=== PATIENT | male | born 1955 | race Caucasian/White ===

== ENCOUNTER 2017-09-24 10:53 | Day surgery (SDC) | payer BC ==
[~2017-09-24 10:53] MED LIST: Lactated Ringers 1,000 ML IV SCH
--- NOTE | 2017-09-24 12:15 | PCM.PREANE ---
Preanesthetic Assessment - Anesthesia/Transfusion/Family Hx Anesthesia History: Prior Anesthesia Without Reaction Family History of Anesthesia Reaction: No Transfusion History: No Prior Transfusion(s) - Review of Systems General: No Symptoms Pulmonary: No Symptoms Cardiovascular: No Symptoms Gastrointestinal: Diarrhea Neurological: No Symptoms Other: Reports: None - Physical Assessment NPO Status Date: 09/23/17 NPO Status Time: 22:00 O2 Sat by Pulse Oximetry: 95 Respiratory Rate: 16 Vital Signs: Last Vital Signs Temp 36.8 C 09/24/17 11:31 Pulse 72 09/24/17 11:31 Resp 16 09/24/17 11:31 BP 139/89 09/24/17 11:31 Pulse Ox 95 09/24/17 11:31 Height: 1.7 m Weight: 112.491 kg ASA Class: 2 Mental Status: Alert & Oriented x3 Airway Class: Mallampati = 1 Dentition: Reports: Normal Dentition ROM/Head Extension: Full Lungs: Clear to Auscultation, Normal Respiratory Effort Cardiovascular: Regular Rate, Regular Rhythm - Allergies Allergies/Adverse Reactions: Allergies Allergy/AdvReac Type Severity Reaction Status Date / Time venom-honey bee Allergy Swelling Verified 11/04/15 14:33 [bee venom (honey bee)] - Anesthesia Plan Pre-Op Medication Ordered: None - Acknowledgements Anesthesia Type Planned: MAC Pt an Appropriate Candidate for the Planned Anesthesia: Yes Alternatives and Risks of Anesthesia Discussed w Pt/Guardian: Yes Pt/Guardian Understands and Agrees with Anesthesia Plan: Yes PreAnesthesia Questionnaire HEENT History: Reports: Other (See Below) Other HEENT History: wears glasses Cardiovascular History: Reports: Hypertension Respiratory History: Reports: None Gastrointestinal History: Reports: Chronic Diarrhea, GERD, Irritable Bowel Syndrome Genitourinary History: Reports: Renal Calculus Musculoskeletal History: Reports: Arthritis Other Musculoskeletal History: hands Neurological History: Reports: None Psychiatric History: Reports: None Endocrine/Metabolic History: Reports: Obesity/BMI 30+ Hematologic History: Reports: None Immunologic History: Reports: None Oncologic (Cancer) History: Reports: None Dermatologic History: Reports: None - Past Surgical History Head Surgeries/Procedures: Reports: None HEENT Surgical History: Reports: Tonsillectomy Cardiovascular Surgical History: Reports: None GI Surgical History: Reports: Colonoscopy, Other (See Below) Other GI Surgeries/Procedures: I&D of perirectal abscess, Anal Fistulectomy Male Surgical History: Reports: Other (See Below) Other Male Surgeries/Procedures: right hydrocelectomy Endocrine Surgical History: Reports: None Neurological Surgical History: Reports: None Musculoskeletal Surgical History: Reports: Carpal Tunnel, Shoulder Surgery Other Musculoskeletal Surgeries/Procedures:: bilateral Rotator Cuff Repair ( denies hardware), bilateral CTR - SUBSTANCE USE Smoking Status *Q: Never Smoker Tobacco Use Within Last Twelve Months: No Second Hand Smoke Exposure: No Recreational Drug Use History: No - HOME MEDS Home Medications: Home Meds amLODIPine Besylate [Amlodipine Besylate] 5 mg PO DAILY 02/01/15 [History] Loperamide [Imodium] 2 mg PO ASDIRECTED PRN 11/04/15 [History] Omeprazole 40 mg PO DAILY 11/04/15 [History] Fluticasone Propionate [Flonase Allergy Relief] 2 spray NASBOTH ASDIRECTED PRN 09/19/17 [History] Losartan [Cozaar] 50 mg PO QAM 09/19/17 [History] - CURRENT (IN HOUSE) MEDS Current Meds: Current Medications Lactated Ringer's (Ringers, Lactated) 1,000 mls @ 125 mls/hr IV ASDIRECTED JASVIR
[2017-09-24] MEDS ORDERED: fentaNYL 100 MCG/2 ML SDV ONE (12:57)
[2017-09-24] MEDS ORDERED: Propofol 200 MG/20 ML SDV ONE (12:58)
[2017-09-24] MEDS ORDERED: Midazolam 1 MG/ML 2 ML SDV ONE (12:58)
[2017-09-24] MEDS ORDERED: Ondansetron 4 MG/2 ML SDV ONE (13:00)
[2017-09-24] MEDS ORDERED: Lactated Ringers 1,000 ML IV SCH (13:45)
--- NOTE | 2017-09-24 13:45 | PCM.OPNOTE ---
- General Post-Op/Procedure Note Date of Surgery/Procedure: 09/24/17 Operative Procedure(s): Colonoscopy with cold ascending colon polypectomy Pre Op Diagnosis: Change in bowel habits. Intermittent rectal bleeding. Post-Op Diagnosis: Cecal polyp Anesthesia Technique: MAC (ASA II) Primary Surgeon: Keven Badillo Condition: Good Free Text/Narrative:: [id number] CPT ODE [id number]
--- NOTE | 2017-09-24 13:58 | PCM.POSTAN ---
POST ANESTHESIA ASSESSMENT - MENTAL STATUS Mental Status: Alert, Oriented - RESPIRATORY Respiratory Status: Respiratory Rate WNL, Airway Patent, O2 Saturation Stable - CARDIOVASCULAR CV Status: Pulse Rate WNL, Blood Pressure Stable - GASTROINTESTINAL GI Status: No Symptoms - PAIN Pain Score: 0 - POST OP HYDRATION Hydration Status: Adequate & Stable - OBSERVATIONS Free Text/Narrative:: Pt stable for discharge from [facility]
--- NOTE | 2017-09-24 14:12 | OR ---
SURGEON: Keven Badillo M.D. DATE OF PROCEDURE: 09/24/2017 OPERATION PERFORMED: Colonoscopy with cold ascending colon polypectomy. ANESTHESIA: MAC. ASA CLASSIFICATION: II. PREOPERATIVE DIAGNOSIS: Change in bowel habits with occasional rectal bleeding. POSTOPERATIVE DIAGNOSIS: Ascending colon polyp. DESCRIPTION OF PROCEDURE: The patient was taken to the endoscopy room, positioned on the endoscopy table in the left lateral decubitus position. Time-out was called for appropriate identification of patient and procedure. Monitored anesthesia care was provided. The colonoscope was inserted into the rectum and advanced with moderate difficulty to the cecum where the colonoscope was retroflexed to visualize the ascending colon from below. The colonoscope was then straightened and slowly withdrawn. One small polyp was encountered in the ascending colon and removed with the cold biopsy forceps. The remainder of the ascending colon, hepatic flexure, transverse colon, splenic flexure, descending colon, sigmoid colon, and rectum showed no tumors, polyps, diverticula, or angiodysplastic changes. Once the colonoscope was withdrawn to the rectum, it was retroflexed to visualize the anal orifice from above. Again, no tumors or polyps were seen, and there were no acute hemorrhoidal changes. The colonoscope was then straightened, the rectum aspirated, and the colonoscope removed. The patient tolerated the procedure well and was taken to recovery room in stable condition. RELL RIVERA /[id number]
--- NOTE | 2017-09-24 14:16 | PCM48HPAN ---
Post Anesthesia Note - EVALUATION WITHIN 48HRS OF ANESTHETIC Vital Signs in Normal Range: Yes Patient Participated in Evaluation: Yes Respiratory Function Stable: Yes Airway Patent: Yes Cardiovascular Function Stable: Yes Hydration Status Stable: Yes Pain Control Satisfactory: Yes Nausea and Vomiting Control Satisfactory: Yes Mental Status Recovered: Yes Resp Rate: 16 - COMMENTS/OBSERVATIONS Free Text/Narrative:: No anesthesia complications.
[2017-09-24 14:55] VITALS: BP 126/76
== END 2017-09-24 14:15 | disposition home or self-care (01) ==
LOC: MW.SDS 10:53
PROVIDERS: ATTEND Surgery
DX: D12.2 Benign neoplasm of ascending colon (principal); M67.929 Unspecified disorder of synovium and tendon, unspecified upper arm; I10 Essential (primary) hypertension; M75.42 Impingement syndrome of left shoulder; M17.11 Unilateral primary osteoarthritis, right knee; K21.9 Gastro-esophageal reflux disease without esophagitis; E66.9 Obesity, unspecified; Z68.38 Body mass index [BMI] 38.0-38.9, adult; Z79.899 Other long term (current) drug therapy; Z79.51 Long term (current) use of inhaled steroids; Z98.890 Other specified postprocedural states; Z91.030 Bee allergy status
CPT/HCPCS: 45380; J2250; J2405; J3010; 88305; J2704

== ENCOUNTER 2018-01-21 07:05 | Day surgery (SDC) | payer BC ==
[2018-01-21] MEDS ORDERED: fentaNYL 250 MCG/5 ML SDV ONE (07:14)
[2018-01-21] MEDS ORDERED: Propofol 200 MG/20 ML SDV ONE (07:14)
[2018-01-21] MEDS ORDERED: Lidocaine 2% 5 ML SDV ONE (07:14)
[2018-01-21] MEDS ORDERED: Midazolam 1 MG/ML 2 ML SDV ONE (07:14)
[2018-01-21] MEDS ORDERED: ceFAZolin/Dextrose,Iso-Osmotic 2 GM/50 ML Duplex Bag IV ONE (07:20)
--- NOTE | 2018-01-21 07:26 | PCM.PREANE ---
Preanesthetic Assessment - Anesthesia/Transfusion/Family Hx Anesthesia History: Prior Anesthesia Without Reaction Transfusion History: No Prior Transfusion(s) - Review of Systems General: No Symptoms Pulmonary: No Symptoms Cardiovascular: No Symptoms Gastrointestinal: No Symptoms Neurological: No Symptoms Other: Reports: None - Physical Assessment NPO Status Date: 01/20/18 NPO Status Time: 22:00 Height: 5 ft 7 in Weight: 104.326 kg ASA Class: 2 Mental Status: Alert & Oriented x3 Airway Class: Mallampati = 2 Dentition: Reports: Normal Dentition Thyro-Mental Finger Breadths: 3 Mouth Opening Finger Breadths: 3 ROM/Head Extension: Full Lungs: Clear to Auscultation, Normal Respiratory Effort Cardiovascular: Regular Rate, Regular Rhythm - Allergies Allergies/Adverse Reactions: Allergies Allergy/AdvReac Type Severity Reaction Status Date / Time venom-honey bee Allergy Swelling Verified 11/04/15 14:33 [bee venom (honey bee)] - Acknowledgements Anesthesia Type Planned: General Anesthesia (LMA) Pt an Appropriate Candidate for the Planned Anesthesia: Yes Alternatives and Risks of Anesthesia Discussed w Pt/Guardian: Yes Pt/Guardian Understands and Agrees with Anesthesia Plan: Yes PreAnesthesia Questionnaire HEENT History: Reports: Allergic Rhinitis, Other (See Below) Other HEENT History: wears glasses Cardiovascular History: Reports: Hypertension Respiratory History: Reports: None Gastrointestinal History: Reports: GERD, Irritable Bowel Syndrome Genitourinary History: Reports: Renal Calculus Musculoskeletal History: Reports: Arthritis Other Musculoskeletal History: hands Neurological History: Reports: None Psychiatric History: Reports: None Endocrine/Metabolic History: Reports: Obesity/BMI 30+ Hematologic History: Reports: None Immunologic History: Reports: None Oncologic (Cancer) History: Reports: None Dermatologic History: Reports: None - Infectious Disease History Infectious Disease History: Reports: None - Past Surgical History HEENT Surgical History: Reports: Tonsillectomy GI Surgical History: Reports: Colonoscopy, Other (See Below) Other GI Surgeries/Procedures: Anal Fistulectomy, I&D of Perirectal Abscess Musculoskeletal Surgical History: Reports: Carpal Tunnel, Shoulder Surgery Other Musculoskeletal Surgeries/Procedures:: bilateral RTCR, bilateral CTR - SUBSTANCE USE Smoking Status *Q: Former Smoker Tobacco Use Within Last Twelve Months: No Recreational Drug Use History: No - HOME MEDS Home Medications: Home Meds amLODIPine Besylate [Amlodipine Besylate] 5 mg PO DAILY 02/01/15 [History] Loperamide [Imodium] 2 mg PO ASDIRECTED PRN 11/04/15 [History] Omeprazole 40 mg PO DAILY 11/04/15 [History] Fluticasone Propionate [Flonase Allergy Relief] 2 spray NASBOTH ASDIRECTED PRN 09/19/17 [History] Losartan [Cozaar] 50 mg PO QAM 09/19/17 [History] - CURRENT (IN HOUSE) MEDS Current Meds: Current Medications Hydrocodone Bitart/Acetaminophen (Lyons 325-5 Mg) 1 - 2 tab PO Q4H PRN PRN Reason: Pain Cefazolin Sodium/Dextrose 2 gm (/ Premix) 50 mls @ 100 mls/hr IV ONCALL JASVIR Lactated Ringer's (Ringers, Lactated) 1,000 mls @ 100 mls/hr IV ASDIRECTED JASVIR Discontinued Medications Cefazolin Sodium/Dextrose (Ancef) Confirm Administered Dose 2 gm IV .STK-MED ONE Stop: 01/21/18 07:21 Fentanyl (Sublimaze) Confirm Administered Dose 250 mcg .ROUTE .STK-MED ONE Stop: 01/21/18 07:15 Lidocaine (Xylocaine-Mpf 2%) Confirm Administered Dose 10 ml .ROUTE .STK-MED ONE Stop: 01/21/18 07:15 Midazolam HCl (Versed 1 Mg/Ml) Confirm Administered Dose 2 mg .ROUTE .STK-MED ONE Stop: 01/21/18 07:15 Propofol (Diprivan 20 Ml) Confirm Administered Dose 400 mg .ROUTE .STK-MED ONE Stop: 01/21/18 07:15
[2018-01-21] MEDS ORDERED: Lidocaine 1% 20 ML MDV ONE (07:39)
[2018-01-21] MEDS ORDERED: ceFAZolin 2 GM in Premix Bag 1 BAG IV SCH (08:00)
[2018-01-21] MEDS ORDERED: Acetaminophen/HYDROcodone 325-5 MG Tab PO PRN (08:00)
[2018-01-21] MEDS ORDERED: fentaNYL 100 MCG/2 ML SDV IVPUSH PRN (08:32)
--- NOTE | 2018-01-21 08:52 | PCM.OPNOTE ---
- General Post-Op/Procedure Note Date of Surgery/Procedure: 01/21/18 Operative Procedure(s): R knee arthroscopy with PMM/PLM Post-Op Diagnosis: DJD R knee. R knee med/lat meniscus tear Anesthesia Technique: General LMA Primary Surgeon: Ludivina Garza Art Teacher: Chelsey Mccoy in mLs: 5 Condition: Good Free Text/Narrative:: tt=21 min #[id number]
[2018-01-21] MEDS ORDERED: ePHEDrine 50 MG/ML SDV ONE (09:00)
--- NOTE | 2018-01-21 09:37 | PCM.POSTAN ---
POST ANESTHESIA ASSESSMENT - MENTAL STATUS Mental Status: Alert, Oriented - RESPIRATORY Respiratory Status: Respiratory Rate WNL, Airway Patent, O2 Saturation Stable - CARDIOVASCULAR CV Status: Pulse Rate WNL, Blood Pressure Stable - GASTROINTESTINAL GI Status: No Symptoms - POST OP HYDRATION Hydration Status: Adequate & Stable
--- NOTE | 2018-01-21 10:06 | OR ---
SURGEON: Ludivina Garza MD DATE OF PROCEDURE: 01/21/2018 PREOPERATIVE DIAGNOSIS: Right knee medial meniscus tear. POSTOPERATIVE DIAGNOSES: 1. Right knee medial meniscus tear. 2. Right knee lateral meniscus tear. 3. Degenerative joint disease, right knee. PROCEDURE PERFORMED: Right knee arthroscopy with partial medial and lateral meniscectomy. HUMAN RESOURCES ASSOCIATE: Chelsey Mccoy PA-C ANESTHESIA: General. ESTIMATED BLOOD LOSS: 5 mL. TOURNIQUET TIME: 21 minutes. COMPLICATIONS: None. DVT PROPHYLAXIS: Not indicated. IMPLANTS USED: None. BRIEF HISTORY: Braulio is a 62-year-old male who has had complaint of progressive right knee pain. He had failed conservative treatment. Due to his lack of response to conservative treatment, I did recommend surgical intervention. The risks and goals of procedure were discussed with the patient and were documented preoperatively. He agreed to proceed. DESCRIPTION OF PROCEDURE: The patient was properly identified and brought to the operating room. He was transferred from the OR cart and placed on the operating table in supine position. General anesthesia was administered. After adequate anesthesia was obtained, a well-padded tourniquet was applied to the right lower extremity. The right lower extremity was then prepped in standard fashion using ChloraPrep solution. It was then sterilely draped. A time-out was performed to ensure correct site and procedure. Preoperative antibiotics were given. The surgical site had been marked preoperatively. An Esmarch was used to exsanguinate the right lower extremity, and the tourniquet was inflated to 250 mmHg. A lateral portal arthrotomy was established. Blunt trocar and cannula were introduced into the suprapatellar pouch. Camera, inflow, and outflow were assembled. No significant synovitis was noted. The patellofemoral joint was visualized. The patella tracked in a slightly lateral position. Diffuse grade 2 chondromalacia was noted along the undersurface of the patella. The trochlea showed extensive degenerative changes including a portion of the lateral femoral condyle, which showed grade 3 to 4 chondromalacia. I then extended down the medial gutter. The start of an osteophyte was noted along the medial femoral condyle. I then entered the medial compartment. A medial portal arthrotomy was established. A blunt probe was inserted. Degenerative tearing along the central portion of the meniscus was noted. Using a combination of biters and shaver, this was resected back to a stable remnant. The joint surfaces were then inspected. He had a loose flap of cartilage along the medial femoral condyle. This was resected with the shaver. This was full thickness and did extend down to the bone. An area of approximately 5 mm x 15 mm of grade 4 chondromalacia was noted along the weightbearing surface of the medial femoral condyle. The surrounding cartilage showed diffuse grade 3 degenerative findings. The medial tibial plateau also showed grade 3 chondromalacia. I then entered the notch. A portion of the fat pad was resected for visualization. Both the ACL and PCL were visualized and probed and found to be intact. I then entered the lateral compartment. Again, degenerative fraying was noted along the central portion of the meniscus. This was resected using a combination of biters and shaver. The meniscus was then probed, and the remainder of the meniscus was found to be stable. Diffuse grade 2 chondromalacia was noted along the lateral tibial plateau. Grade 2 chondromalacia was noted along the lateral femoral condyle. The lateral gutter was inspected. The lateral femoral condyle showed the start of an osteophyte. The instruments were then removed from the knee. The portal sites were closed with 3-0 nylon. 1% lidocaine was injected along the portal tracts. Xeroform gauze was placed over the wound, and a bulky dressing was applied. The tourniquet was then deflated. He was awakened from his anesthetic and transferred back to the operating room cart. He was brought to recovery room in stable condition. All needle and sponge counts were correct. HIEN / NICOLE /[id number]
--- NOTE | 2018-01-21 10:19 | PCM48HPAN ---
Post Anesthesia Note - EVALUATION WITHIN 48HRS OF ANESTHETIC Vital Signs in Normal Range: Yes Patient Participated in Evaluation: Yes Respiratory Function Stable: Yes Airway Patent: Yes Cardiovascular Function Stable: Yes Hydration Status Stable: Yes Pain Control Satisfactory: Yes Nausea and Vomiting Control Satisfactory: Yes Mental Status Recovered: Yes Resp Rate: 12
[2018-01-21 11:19] VITALS: BP 154/99
== END 2018-01-21 10:40 | disposition home or self-care (01) ==
LOC: MW.SDS 07:05
PROVIDERS: ATTEND Orthopaedic Surgery
DX: M23.203 Derangement of unspecified medial meniscus due to old tear or injury, right knee (principal); M23.200 Derangement of unspecified lateral meniscus due to old tear or injury, right knee; M17.11 Unilateral primary osteoarthritis, right knee; M65.88 Other synovitis and tenosynovitis, other site; M94.261 Chondromalacia, right knee; M25.761 Osteophyte, right knee; I10 Essential (primary) hypertension; E66.9 Obesity, unspecified; Z68.36 Body mass index [BMI] 36.0-36.9, adult; K21.9 Gastro-esophageal reflux disease without esophagitis; Z87.891 Personal history of nicotine dependence; Z79.899 Other long term (current) drug therapy; Z91.030 Bee allergy status
CPT/HCPCS: 29880; 93005; J0690; J2250; J3010; J7120; 01400; J2704

== ENCOUNTER 2018-01-26 13:12 | Emergency (ER) | payer BC ==
[2018-01-26 13:42] VITALS: BP 141/82
[2018-01-26] MEDS ORDERED: LORazepam 2 MG/ML SDV IVPUSH ONE (13:44)
[2018-01-26] MEDS ORDERED: Magnesium Sulfate/Water 2 GM in Premix Bag 1 BAG IV ONE (13:45)
--- NOTE | 2018-01-26 13:53 | EDM.PDOC ---
ED HPI GENERAL MEDICAL PROBLEM - General Chief Complaint: Bite:Animal, Insect Stated Complaint: SPIDER BITE ON RT LEG Time Seen by Provider: 01/26/18 14:12 Source of Information: Reports: Patient History Limitations: Reports: No Limitations - History of Present Illness INITIAL COMMENTS - FREE TEXT/NARRATIVE: HISTORY AND PHYSICAL: History of present illness: [Braulio is a 62-year-old male here for bug bite. Patient states he had surgery to his right knee 6 days ago, did no notice any bite then. He noticed the redness 4 days ago, states it was draining some clear/yellow fluid first couple of days. It is tender to touch. He denies any fevers or chills. ] Review of systems: As per history of present illness and below otherwise all systems reviewed and negative. Past medical history: As per history of present illness and as reviewed below otherwise noncontributory. Surgical history: As per history of present illness and as reviewed below otherwise noncontributory. Social history: No reported history of drug or alcohol abuse. Family history: As per history of present illness and as reviewed below otherwise noncontributory. Physical exam: General: patient sitting comfortably in no acute distress HEENT: Atraumatic, normocephalic, pupils reactive, negative for conjunctival pallor or scleral icterus Lungs: Clear to auscultation, breath sounds equal bilaterally, chest nontender. Heart: S1S2, regular, negative for clicks, rubs, or JVD. Abdomen: Soft, nondistended, nontender. Negative for masses or hepatosplenomegaly. Negative for costovertebral tenderness. Skin: there is a small scab with 2.5cm of surrounding erythema to the right anterior leg. 2+ pitting edema distally. Extremities: Atraumatic, negative for cords or calf pain. Neurovascular unremarkable. Neuro: Awake, alert, oriented. Cranial nerves II through XII unremarkable. Cerebellum unremarkable. Motor and sensory unremarkable throughout. Exam nonfocal. Notes: Diagnostics: [] Therapeutics: [Keflex 500mg BID] Impression: [Cellulitis] Plan: [#1 Take antibiotic as instructed #2 Follow up with primary care provider #3 Return to ED as needed as discussed] Definitive disposition and diagnosis as appropriate pending reevaluation and review of above. - Related Data Allergies Allergy/AdvReac Type Severity Reaction Status Date / Time venom-honey bee Allergy Swelling Verified 01/26/18 13:42 [bee venom (honey bee)] Home Meds: Home Meds amLODIPine Besylate [Amlodipine Besylate] 5 mg PO DAILY 02/01/15 [History] Omeprazole 40 mg PO DAILY 11/04/15 [History] Fluticasone Propionate [Flonase Allergy Relief] 2 spray NASBOTH ASDIRECTED PRN 09/19/17 [History] Losartan [Cozaar] 50 mg PO QAM 09/19/17 [History] Cephalexin [Keflex] 500 mg PO BID 10 Days #20 cap 01/26/18 [Rx] Past Medical History HEENT History: Reports: Allergic Rhinitis, Other (See Below) Other HEENT History: wears glasses Cardiovascular History: Reports: Hypertension Respiratory History: Reports: None Gastrointestinal History: Reports: GERD, Irritable Bowel Syndrome Genitourinary History: Reports: Renal Calculus Musculoskeletal History: Reports: Arthritis Other Musculoskeletal History: hands Neurological History: Reports: None Psychiatric History: Reports: None Endocrine/Metabolic History: Reports: Obesity/BMI 30+ Hematologic History: Reports: None Immunologic History: Reports: None Oncologic (Cancer) History: Reports: None Dermatologic History: Reports: None - Infectious Disease History Infectious Disease History: Reports: None - Past Surgical History Head Surgeries/Procedures: Reports: None HEENT Surgical History: Reports: Tonsillectomy Cardiovascular Surgical History: Reports: None GI Surgical History: Reports: Colonoscopy, Other (See Below) Other GI Surgeries/Procedures: Anal Fistulectomy, I&D of Perirectal Abscess Male Surgical History: Reports: Other (See Below) Other Male Surgeries/Procedures: right hydrocelectomy Endocrine Surgical History: Reports: None Neurological Surgical History: Reports: None Musculoskeletal Surgical History: Reports: Carpal Tunnel, Shoulder Surgery Other Musculoskeletal Surgeries/Procedures:: bilateral RTCR, bilateral CTR Social & Family History - Family History Family Medical History: Noncontributory ED ROS GENERAL - Review of Systems Review Of Systems: ROS reveals no pertinent complaints other than HPI. ED EXAM, ANIMAL BITE - Physical Exam Exam: See Below Course - Vital Signs Last Recorded V/S: Last Vital Signs Temp 36.7 C 01/26/18 13:38 Pulse 79 01/26/18 13:38 Resp 20 01/26/18 13:38 BP 141/82 H 01/26/18 13:38 Pulse Ox 95 01/26/18 13:38 - Orders/Labs/Meds Orders: Active Orders 24 hr Category Date Time Status Magnesium Sulfate/Water [Magnesium Sulfate 2 GM in Med 01/26/18 13:45 Ordered Water 50 ML] 2 gm Premix Bag 1 bag IV ONETIME Meds: Medications Discontinued Medications Generic Name Dose Route Start Last Admin Trade Name Schuyler PRN Reason Stop Dose Admin Lorazepam 1 mg 01/26/18 13:44 Ativan IVPUSH 01/26/18 13:45 ONETIME ONE Departure - Departure Time of Disposition: 13:48 Disposition: Home, Self-Care 01 Condition: Good Clinical Impression: Cellulitis - Discharge Information Referrals: PCP,None [Primary Care Provider] - Additional Instructions: The following information is given to patients seen in the emergency department who are being discharged to home. This information is to outline your options for follow-up care. We provide all patients seen in our emergency department with a follow-up referral. The need for follow-up, as well as the timing and circumstances, are variable depending upon the specifics of your emergency department visit. If you don't have a primary care physician on staff, we will provide you with a referral. We always advise you to contact your personal physician following an emergency department visit to inform them of the circumstance of the visit and for follow-up with them and/or the need for any referrals to a consulting specialist. The emergency department will also refer you to a specialist when appropriate. This referral assures that you have the opportunity for follow-up care with a specialist. All of these measure are taken in an effort to provide you with optimal care, which includes your follow-up. Under all circumstances we always encourage you to contact your private physician who remains a resource for coordinating your care. When calling for follow-up care, please make the office aware that this follow-up is from your recent emergency room visit. If for any reason you are refused follow-up, please contact the [facility] Department at and asked to speak to the emergency department charge nurse. [facility] [address] [place] [id number] [address] [place] [address] #1 Take antibiotic as instructed #2 Follow up with primary care provider #3 Return to ED as needed as discussed - My Orders Last 24 Hours: My Active Orders 01/26/18 13:45 Magnesium Sulfate/Water [Magnesium Sulfate 2 GM in Water 50 ML] 2 gm Premix Bag 1 bag IV ONETIME - Assessment/Plan Last 24 Hours: My Active Orders 01/26/18 13:45 Magnesium Sulfate/Water [Magnesium Sulfate 2 GM in Water 50 ML] 2 gm Premix Bag 1 bag IV ONETIME
== END 2018-01-26 14:16 | disposition home or self-care (01) ==
LOC: MW.ED 13:12
DX: L03.115 Cellulitis of right lower limb (principal); I10 Essential (primary) hypertension; K21.9 Gastro-esophageal reflux disease without esophagitis; Z91.030 Bee allergy status; Z79.899 Other long term (current) drug therapy
CPT/HCPCS: 96365; 96372; 99282-25

== ENCOUNTER 2019-04-26 16:08 | Emergency (ER) | payer BC ==
[2019-04-26] MEDS ORDERED: Sodium Chloride 0.9% 1,000 ML IV ONE (16:31)
[2019-04-26] MEDS ORDERED: Sodium Chloride 0.9% 2.5 ML Syringe FLUSH PRN (16:31)
[2019-04-26] MEDS ORDERED: Sodium Chloride 0.9% 10 ML Syringe FLUSH PRN (16:31)
[2019-04-26] MEDS ORDERED: Acetaminophen 500 MG Tab PO ONE (16:31)
--- NOTE | 2019-04-26 16:36 | EDM.PDOC ---
ED HPI GENERAL MEDICAL PROBLEM - General Chief Complaint: Fever Stated Complaint: FLU Time Seen by Provider: 04/26/19 16:18 - History of Present Illness INITIAL COMMENTS - FREE TEXT/NARRATIVE: HISTORY AND PHYSICAL: History of present illness: The patient is a 64-year-old male with a history of hypertension who presents with 2 days of feeling hot and then feeling cold taking ibuprofen for the fever is mild body aches but not profound or diffuse and concerned about these fevers. He has no headache runny nose sore throat ear pain chest pain or shortness of breath and he has no abdominal pain nausea vomiting or diarrhea. The patient says that yesterday he had a slight diffuse abdominal pain but that is gone away and has not persisted and he has been eating and drinking normally. He's had no urinary complaints such as hematuria dysuria frequency and no flank pain. He has no neck pain and has no rashes. He has not gotten his flu shot yet this year and had been getting it yesterday but because of his illness he did not go. Review of systems: As per history of present illness and below otherwise all systems reviewed and negative. Past medical history: As per history of present illness and as reviewed below otherwise noncontributory. Surgical history: As per history of present illness and as reviewed below otherwise noncontributory. Social history: No reported history of drug or alcohol abuse. Family history: As per history of present illness and as reviewed below otherwise noncontributory. Physical exam: General: Well-developed well-nourished overweight man who is nontoxic and speaking clearly in the ED without breathlessness. Vital signs are noted by me HEENT: Atraumatic, normocephalic, pupils reactive, negative for conjunctival pallor or scleral icterus, mucous membranes moist, throat clear, neck supple, nontender, trachea midline. Some anterior cervical adenopathy but no posterior adenopathy and no nuchal rigidity. The tongue is somewhat tacky but there is no oral pharyngeal changes or erythema and no sinus tenderness. Lungs: Clear to auscultation, breath sounds equal bilaterally, chest nontender. Wheezing stridor or work of breathing Heart: S1S2, regular rhythm and regular rate on my evaluation but no overt murmurs Abdomen: Soft, nondistended, nontender. Negative for masses or hepatosplenomegaly. Negative for costovertebral tenderness. The patient has a soft umbilical hernia which she says has not changed in size nor have any surrounding erythema or tenderness. Pelvis: Deferred Genitourinary: Deferred. Rectal: Deferred. Extremities: Atraumatic, negative for cords or calf pain. Neurovascular unremarkable. Neuro: Awake, alert, oriented. Cranial nerves II through XII unremarkable. Cerebellum unremarkable. Motor and sensory unremarkable throughout. Exam nonfocal. Diagnostics: CBC CMP UA with reflex Monospot chest x-ray lactic acid blood cultures 2 influenza rapid strep Therapeutics: IV fluids Tylenol After the fluids and Tylenol patient is feeling significantly improved and tells nursing this is the best he's felt in the last 2 days. He is currently afebrile at 99 and I'm currently just awaiting the rest of his urine testing and will go over all labs with him. At this point I do not have a source for his fever and the only abnormality is that within normal WBC count he does have a slight left shift with have any percent neutrophils and 6 bands. I have sent blood cultures and urine culture will be sent if the UA micro-indicates. I discussed with them the need for symptomatic care and management as this is likely viral but that we would call him if the blood cultures revealed any significant issues that mandated antibiotic therapy. I've advised him to follow- up with the clinic take appropriate doses of Tylenol and ibuprofen and push hydration. I've also advised on reasons to return especially if new symptoms erupt or his clinical picture changes. Impression: Fever, viral illness Definitive disposition and diagnosis as appropriate pending reevaluation and review of above. - Related Data Allergies Allergy/AdvReac Type Severity Reaction Status Date / Time venom-honey bee Allergy Swelling Verified 04/26/19 16:27 [bee venom (honey bee)] Home Meds: Home Meds amLODIPine Besylate [Amlodipine Besylate] 5 mg PO DAILY 02/01/15 [History] Omeprazole 40 mg PO DAILY 11/04/15 [History] Losartan [Cozaar] 50 mg PO QAM 09/19/17 [History] Past Medical History HEENT History: Reports: Allergic Rhinitis, Other (See Below) Other HEENT History: wears glasses Cardiovascular History: Reports: Hypertension Respiratory History: Reports: None Gastrointestinal History: Reports: GERD, Irritable Bowel Syndrome Genitourinary History: Reports: Renal Calculus Musculoskeletal History: Reports: Arthritis Other Musculoskeletal History: hands Neurological History: Reports: None Psychiatric History: Reports: None Endocrine/Metabolic History: Reports: Obesity/BMI 30+ Hematologic History: Reports: None Immunologic History: Reports: None Oncologic (Cancer) History: Reports: None Dermatologic History: Reports: None - Infectious Disease History Infectious Disease History: Reports: None - Past Surgical History Head Surgeries/Procedures: Reports: None HEENT Surgical History: Reports: Tonsillectomy Cardiovascular Surgical History: Reports: None GI Surgical History: Reports: Colonoscopy, Other (See Below) Other GI Surgeries/Procedures: Anal Fistulectomy, I&D of Perirectal Abscess Male Surgical History: Reports: Other (See Below) Other Male Surgeries/Procedures: right hydrocelectomy Endocrine Surgical History: Reports: None Neurological Surgical History: Reports: None Musculoskeletal Surgical History: Reports: Carpal Tunnel, Shoulder Surgery Other Musculoskeletal Surgeries/Procedures:: bilateral RTCR, bilateral CTR Social & Family History - Family History Family Medical History: Noncontributory - Tobacco Use Smoking Status *Q: Never Smoker - Caffeine Use Caffeine Use: Reports: Coffee - Recreational Drug Use Recreational Drug Use: No ED ROS GENERAL - Review of Systems Review Of Systems: ROS reveals no pertinent complaints other than HPI. ED EXAM, GENERAL - Physical Exam Exam: See Below (See dictation) Course - Vital Signs Last Recorded V/S: Last Vital Signs Temp 37.4 C 04/26/19 18:25 Pulse 89 04/26/19 16:23 Resp 16 04/26/19 16:23 BP 139/85 04/26/19 16:23 Pulse Ox 94 L 04/26/19 16:23 - Orders/Labs/Meds Orders: Active Orders 24 hr Category Date Time Status CULTURE BLOOD [BC] Stat Lab 04/26/19 17:00 Received CULTURE BLOOD [BC] Stat Lab 04/26/19 17:14 Received CULTURE STREP A CONFIRMATION [RM] Stat Lab 04/26/19 16:35 Results STREP SCRN A RAPID W CULT CONF [RM] Stat Lab 04/26/19 16:35 Results Sodium Chloride 0.9% [Saline Flush] Med 04/26/19 16:31 Active 10 ml FLUSH ASDIRECTED PRN Sodium Chloride 0.9% [Saline Flush] Med 04/26/19 16:31 Active 2.5 ml FLUSH ASDIRECTED PRN Blood Culture x2 Reflex Set [OM.PC] Stat Oth 04/26/19 16:32 Ordered Saline Lock Insert [OM.PC] Stat Oth 04/26/19 16:31 Ordered Medication Orders Sodium Chloride (Saline Flush) 10 ml FLUSH ASDIRECTED PRN PRN Reason: Keep Vein Open Sodium Chloride (Saline Flush) 2.5 ml FLUSH ASDIRECTED PRN PRN Reason: Keep Vein Open Labs: Laboratory Tests 04/26/19 04/26/19 04/26/19 Range/Units 16:35 16:35 16:35 WBC 9.82 (4.0-11.0) K/uL RBC 4.41 L (4.50-5.90) M/uL Hgb 13.8 (13.0-17.0) g/dL Hct 41.6 (38.0-50.0) % MCV 94.3 (80.0-98.0) fL MCH 31.3 (27.0-32.0) pg MCHC 33.2 (31.0-37.0) g/dL RDW Std Deviation 46.8 (28.0-62.0) fl RDW Coeff of Lida 14 (11.0-15.0) % Plt Count 81 L (150-400) K/uL MPV 9.50 (7.40-12.00) fL Add Manual Diff YES Neutrophils % (Manual) 70 (48.0-80.0) % Band Neutrophils % 6 % Lymphocytes % (Manual) 19 (16.0-40.0) % Immat Monocytes % (Man) Monocytes % (Manual) 5 (0.0-15.0) % Nucleated RBC % 0.0 /100WBC Absolute Seg Neuts 6.9 H (1.4-5.7) Band Neutrophils # 0.6 Lymphocytes # (Manual) 1.9 (0.6-2.4) Monocytes # (Manual) 0.5 (0.0-0.8) Nucleated RBCs # 0 K/uL Lactate 1.1 (0.20-2.00) mmol/L Sodium 139 (136-148) mmol/L Potassium 4.0 (3.5-5.1) mmol/L Chloride 105 (98-107) mmol/L Carbon Dioxide 25.2 (21.0-32.0) mmol/L BUN 11 (7.0-18.0) mg/dL Creatinine 1.1 (0.8-1.3) mg/dL Est Cr Clr Drug Dosing 63.43 mL/min Estimated GFR (MDRD) > 60.0 ml/min Glucose 129 H (74-106) mg/dL Calcium 8.8 (8.5-10.1) mg/dL Total Bilirubin 0.8 (0.2-1.0) mg/dL AST 20 (15-37) IU/L ALT 47 (14-63) IU/L Alkaline Phosphatase 68 (46-116) U/L Total Protein 7.3 (6.4-8.2) g/dL Albumin 3.2 L (3.4-5.0) g/dL Globulin 4.1 H (2.6-4.0) g/dL Albumin/Globulin Ratio 0.8 L (0.9-1.6) Urine Color Urine Appearance Urine pH (5.0-8.0) Ur Specific Sweet (1.001-1.035) Urine Protein (NEGATIVE) mg/dL Urine Glucose (UA) (NEGATIVE) mg/dL Urine Ketones (NEGATIVE) mg/dL Urine Occult Blood (NEGATIVE) Urine Nitrite (NEGATIVE) Urine Bilirubin (NEGATIVE) Urine Urobilinogen (<2.0) EU/dL Ur Leukocyte Esterase (NEGATIVE) Urine RBC (0-2/HPF) Urine WBC (0-5/HPF) Ur Epithelial Cells (NONE-FEW) Urine Bacteria (NEGATIVE) Monoscreen (NEG) 04/26/19 04/26/19 Range/Units 16:35 18:00 WBC (4.0-11.0) K/uL RBC (4.50-5.90) M/uL Hgb (13.0-17.0) g/dL Hct (38.0-50.0) % MCV (80.0-98.0) fL MCH (27.0-32.0) pg MCHC (31.0-37.0) g/dL RDW Std Deviation (28.0-62.0) fl RDW Coeff of Lida (11.0-15.0) % Plt Count (150-400) K/uL MPV (7.40-12.00) fL Add Manual Diff Neutrophils % (Manual) (48.0-80.0) % Band Neutrophils % % Lymphocytes % (Manual) (16.0-40.0) % Immat Monocytes % (Man) Monocytes % (Manual) (0.0-15.0) % Nucleated RBC % /100WBC Absolute Seg Neuts (1.4-5.7) Band Neutrophils # Lymphocytes # (Manual) (0.6-2.4) Monocytes # (Manual) (0.0-0.8) Nucleated RBCs # K/uL Lactate (0.20-2.00) mmol/L Sodium (136-148) mmol/L Potassium (3.5-5.1) mmol/L Chloride (98-107) mmol/L Carbon Dioxide (21.0-32.0) mmol/L BUN (7.0-18.0) mg/dL Creatinine (0.8-1.3) mg/dL Est Cr Clr Drug Dosing mL/min Estimated GFR (MDRD) ml/min Glucose (74-106) mg/dL Calcium (8.5-10.1) mg/dL Total Bilirubin (0.2-1.0) mg/dL AST (15-37) IU/L ALT (14-63) IU/L Alkaline Phosphatase (46-116) U/L Total Protein (6.4-8.2) g/dL Albumin (3.4-5.0) g/dL Globulin (2.6-4.0) g/dL Albumin/Globulin Ratio (0.9-1.6) Urine Color YELLOW Urine Appearance CLEAR Urine pH 6.0 (5.0-8.0) Ur Specific Sweet 1.025 (1.001-1.035) Urine Protein TRACE H (NEGATIVE) mg/dL Urine Glucose (UA) NEGATIVE (NEGATIVE) mg/dL Urine Ketones TRACE H (NEGATIVE) mg/dL Urine Occult Blood MODERATE H (NEGATIVE) Urine Nitrite NEGATIVE (NEGATIVE) Urine Bilirubin NEGATIVE (NEGATIVE) Urine Urobilinogen 0.2 (<2.0) EU/dL Ur Leukocyte Esterase NEGATIVE (NEGATIVE) Urine RBC 1-4 (0-2/HPF) Urine WBC 0-1 (0-5/HPF) Ur Epithelial Cells RARE (NONE-FEW) Urine Bacteria RARE (NEGATIVE) Monoscreen NEGATIVE (NEG) Meds: Medications Generic Name Dose Route Start Last Admin Trade Name Freq PRN Reason Stop Dose Admin Sodium Chloride 10 ml 04/26/19 16:31 Saline Flush FLUSH ASDIRECTED PRN Keep Vein Open Sodium Chloride 2.5 ml 04/26/19 16:31 Saline Flush FLUSH ASDIRECTED PRN Keep Vein Open Discontinued Medications Generic Name Dose Route Start Last Admin Trade Name Schuyler PRN Reason Stop Dose Admin Acetaminophen 1,000 mg 04/26/19 16:31 04/26/19 16:44 Tylenol Extra Strength PO 04/26/19 16:32 1,000 mg ONETIME ONE Administration Sodium Chloride 1,000 mls @ 999 mls/hr 04/26/19 16:31 04/26/19 16:41 Normal Saline IV 04/26/19 17:31 999 mls/hr STAT ONE Administration Departure - Departure Time of Disposition: 18:37 Disposition: Home, Self-Care 01 Condition: Good Clinical Impression: Fever Qualifiers: Fever type: unspecified Qualified Code(s): R50.9 - Fever, unspecified - Discharge Information Instructions: Fever, Adult, Rehydration, Adult Referrals: PCP,Unknown [Primary Care Provider] - Forms: ED Department Discharge Additional Instructions: The following information is given to patients seen in the emergency department who are being discharged to home. This information is to outline your options for follow-up care. We provide all patients seen in our emergency department with a follow-up referral. The need for follow-up, as well as the timing and circumstances, are variable depending upon the specifics of your emergency department visit. If you don't have a primary care physician on staff, we will provide you with a referral. We always advise you to contact your personal physician following an emergency department visit to inform them of the circumstance of the visit and for follow-up with them and/or the need for any referrals to a consulting specialist. The emergency department will also refer you to a specialist when appropriate. This referral assures that you have the opportunity for followup care with a specialist. All of these measure are taken in an effort to provide you with optimal care, which includes your followup. Under all circumstances we always encourage you to contact your private physician who remains a resource for coordinating your care. When calling for followup care, please make the office aware that this follow-up is from your recent emergency room visit. If for any reason you are refused follow-up, please contact the [facility] emergency department at and ask to speak to the emergency department charge nurse. MARY [facility] Primary care- Internal Medicine and Family [facility] [address] [place] [address] [facility] [address] [place] [address] Please call and connect with your provider or one of hours for reevaluation and further care next week and continue to monitor your temperature taking Tylenol and Motrin in appropriate doses as needed for temperatures of 100.4 or higher. Your dose for Tylenol is 1000 mg or 2 extra strength every 6 hours and your dose of ibuprofen/Motrin is 800 mg every 8 hours. You need to push her hydration as this will help you with your recovery process. Continue to monitor any new symptoms or changes in his status and return to ER as needed and as discussed. Cultures of your blood were sent on your ER visit today and if there any need for antibiotic therapy you will be contacted - My Orders Last 24 Hours: My Active Orders 04/26/19 16:31 Sodium Chloride 0.9% [Saline Flush] 10 ml FLUSH ASDIRECTED PRN Sodium Chloride 0.9% [Saline Flush] 2.5 ml FLUSH ASDIRECTED PRN Saline Lock Insert [OM.PC] Stat 04/26/19 16:32 Blood Culture x2 Reflex Set [OM.PC] Stat 04/26/19 16:35 CULTURE STREP A CONFIRMATION [RM] Stat STREP SCRN A RAPID W CULT CONF [RM] Stat 04/26/19 17:00 CULTURE BLOOD [BC] Stat 04/26/19 17:14 CULTURE BLOOD [BC] Stat - Assessment/Plan Last 24 Hours: My Active Orders 04/26/19 16:31 Sodium Chloride 0.9% [Saline Flush] 10 ml FLUSH ASDIRECTED PRN Sodium Chloride 0.9% [Saline Flush] 2.5 ml FLUSH ASDIRECTED PRN Saline Lock Insert [OM.PC] Stat 04/26/19 16:32 Blood Culture x2 Reflex Set [OM.PC] Stat 04/26/19 16:35 CULTURE STREP A CONFIRMATION [RM] Stat STREP SCRN A RAPID W CULT CONF [RM] Stat 04/26/19 17:00 CULTURE BLOOD [BC] Stat 04/26/19 17:14 CULTURE BLOOD [BC] Stat
[2019-04-26 17:14] LABS: BLOOD UREA NITROGEN,BUN 11 mg/dL (7.0-18.0); CARBON DIOXIDE,CO2 25.2 mmol/L (21.0-32.0); CHLORIDE,CL 105 mmol/L (98-107); GLUCOSE RANDOM 129 mg/dL (74-106); SODIUM,NA 139 mmol/L (136-148)
--- NOTE | 2019-04-26 17:56 | CR ---
INDICATION: Chest pain, shortness of breath, cough TECHNIQUE: Chest 2 views. COMPARISON: None available FINDINGS: The heart is normal in size. The pulmonary vasculature is within normal limits. The lungs are clear without focal consolidation, pleural effusion or pneumothorax. There is mild elevation of the right hemidiaphragm. IMPRESSION: Mild elevation of the right hemidiaphragm, otherwise negative for acute cardiopulmonary process. Dictated by Paulette Weiner MD @ 04/26/2019 5:54:08 PM Dictated by: Paulette Weiner MD @ 04/26/2019 17:54:21 (Electronically Signed)
[2019-04-26 18:49] VITALS: BP 140/85; PULSE 70
== END 2019-04-26 18:43 | disposition home or self-care (01) ==
LOC: MW.ED 16:08
DX: B34.9 Viral infection, unspecified (principal); I10 Essential (primary) hypertension; K21.9 Gastro-esophageal reflux disease without esophagitis; E66.9 Obesity, unspecified; Z68.36 Body mass index [BMI] 36.0-36.9, adult; Z79.899 Other long term (current) drug therapy; Z91.030 Bee allergy status
CPT/HCPCS: 71046; 80053; 81001; 83605; 85025; 86308; 87040; 87081; 87804; 87880; 96360; 99283; A9270; J7040; 99284

== ENCOUNTER 2020-09-20 06:29 | Observation (INO) | payer BC, MEDICARE ==
[~2020-09-20 06:29] MED LIST changes: +cefOXitin 2 GM in Premix Bag 1 BAG IV ONE
[2020-09-20] MEDS ORDERED: Propofol 200 MG/20 ML SDV ONE (07:04)
[2020-09-20] MEDS ORDERED: fentaNYL 250 MCG/5 ML SDV ONE (07:04)
[2020-09-20] MEDS ORDERED: Midazolam 1 MG/ML 2 ML SDV ONE (07:04)
[2020-09-20] MEDS ORDERED: Ondansetron 4 MG/2 ML SDV ONE (07:05)
[2020-09-20] MEDS ORDERED: Dexamethasone 4 MG/ML 5 ML MDV ONE (07:05)
[2020-09-20] MEDS ORDERED: Lidocaine 2% 5 ML SDV ONE (07:05)
[2020-09-20] MEDS ORDERED: Rocuronium Bromide 50 MG/5 ML Syringe ONE (07:05)
[2020-09-20] MEDS ORDERED: Glycopyrrolate 0.2 MG/ML SDV ONE ×3 (07:05→08:47)
--- NOTE | 2020-09-20 07:05 | PCM.PREANE ---
Preanesthetic Assessment - Anesthesia/Transfusion/Family Hx Anesthesia History: Prior Anesthesia Reaction (pain medications make it difficult to urinate. patient not sure which pain medications does this.) Family History of Anesthesia Reaction: No Transfusion History: No Prior Transfusion(s) - Review of Systems General: No Symptoms Pulmonary: No Symptoms Cardiovascular: No Symptoms Gastrointestinal: No Symptoms Neurological: No Symptoms Other: Reports: None - Physical Assessment NPO Status Date: 09/20/20 NPO Status Time: 05:30 Vital Signs: Last Vital Signs Temp 36 C L 09/20/20 06:43 Pulse 66 09/20/20 06:43 Resp 16 09/20/20 06:43 BP 141/90 H 09/20/20 06:43 Pulse Ox 97 09/20/20 06:43 Height: 1.7 m Weight: 113.852 kg ASA Class: 2 Mental Status: Alert & Oriented x3 Airway Class: Mallampati = 3 Dentition: Reports: Normal Dentition Thyro-Mental Finger Breadths: 3 (SHORT THICK NECK) Mouth Opening Finger Breadths: 2 ROM/Head Extension: Full Lungs: Clear to Auscultation, Normal Respiratory Effort Cardiovascular: Regular Rate, Regular Rhythm - Allergies Allergies/Adverse Reactions: Allergies Allergy/AdvReac Type Severity Reaction Status Date / Time venom-honey bee Allergy Swelling Verified 09/20/20 06:49 [bee venom (honey bee)] - Blood Blood Available: No - Acknowledgements Anesthesia Type Planned: General Anesthesia (Patient reque) Pt an Appropriate Candidate for the Planned Anesthesia: Yes Alternatives and Risks of Anesthesia Discussed w Pt/Guardian: Yes Pt/Guardian Understands and Agrees with Anesthesia Plan: Yes PreAnesthesia Questionnaire HEENT History: Reports: Allergic Rhinitis, Other (See Below) Other HEENT History: wears glasses, currently has a sinus infection Cardiovascular History: Reports: Hypertension (ekg nsr, rate=63), Other (See Below) (high high cholesterol) Respiratory History: Reports: Other (See Below) (possible CECILIA undiagnosed) Gastrointestinal History: Reports: Cholelithiasis, Colon Polyp, GERD (controlled) Genitourinary History: Reports: Renal Calculus Musculoskeletal History: Reports: Arthritis Other Musculoskeletal History: hands Neurological History: Reports: None Psychiatric History: Reports: None Endocrine/Metabolic History: Reports: Obesity/BMI 30+ Hematologic History: Reports: None Immunologic History: Reports: None Oncologic (Cancer) History: Reports: None Dermatologic History: Reports: None - Infectious Disease History Infectious Disease History: Reports: None - Past Surgical History Head Surgeries/Procedures: Reports: None HEENT Surgical History: Reports: Tonsillectomy Cardiovascular Surgical History: Reports: None GI Surgical History: Reports: Colonoscopy, Other (See Below) Other GI Surgeries/Procedures: Anal Fistulectomy, I&D of Perirectal Abscess Male Surgical History: Reports: Other (See Below) Other Male Surgeries/Procedures: right hydrocelectomy Endocrine Surgical History: Reports: None Neurological Surgical History: Reports: None Musculoskeletal Surgical History: Reports: Carpal Tunnel, Shoulder Surgery Other Musculoskeletal Surgeries/Procedures:: bilateral RTCR, bilateral CTR - SUBSTANCE USE Tobacco Use Status *Q: Former Tobacco User (> 25 years ago, chewed tobacco) Tobacco Use Within Last Twelve Months: No Days Per Week of Alcohol Use: 1 Recreational Drug Use History: No - HOME MEDS Home Medications: Home Meds amLODIPine Besylate [Amlodipine Besylate] 5 mg PO QAM 02/01/15 [History] Omeprazole 40 mg PO DAILY 11/04/15 [History] Losartan [Cozaar] 50 mg PO QAM 09/19/17 [History] Chlorthalidone 25 mg PO DAILY 09/16/20 [History] Fluticasone Propionate [Flonase Allergy Relief] 2 spray NASBOTH DAILY PRN 0 09/16/20 [History] Loperamide HCl [Imodium A-D] 2 mg PO ASDIRECTED PRN 09/16/20 [History] Meloxicam 15 mg PO DAILY 09/16/20 [History] Pravastatin [Pravachol] 40 mg PO DAILY 09/16/20 [History] - CURRENT (IN HOUSE) MEDS Current Meds: Current Medications Lactated Ringer's (Ringers, Lactated) 1,000 mls @ 125 mls/hr IV ASDIRECTED JASVIR Last Admin: 09/20/20 06:48 Dose: 125 mls/hr Documented by: Discontinued Medications Cefoxitin Sodium 2 gm/ Premix 50 mls @ 100 mls/hr IV ONETIME ONE Stop: 09/20/20 06:29
[2020-09-20] MEDS ORDERED: ceFAZolin 1 GM Vial ONE (07:49)
[2020-09-20] MEDS ORDERED: Bupivacaine 0.5% 30 ML SDV ONE (07:49)
[2020-09-20] MEDS ORDERED: Succinylcholine/Sod PF 100 MG/5 ML SYRINGE IV ONE (07:58)
[2020-09-20] MEDS ORDERED: Sodium Chloride 0.9% 20 ML ONE (08:27)
[2020-09-20] MEDS ORDERED: ePHEDrine 50 MG/ML SDV ONE (08:27)
[2020-09-20] MEDS ORDERED: Ketorolac 30 MG/ML SDV ONE ×2 (08:35→11:34)
[2020-09-20] MEDS ORDERED: Naloxone 0.4 MG/ML Syringe IVPUSH PRN (09:15)
[2020-09-20] MEDS ORDERED: Atropine 0.1 MG/ML 10 ML Syringe IVPUSH PRN ×2 (09:15)
[2020-09-20] MEDS ORDERED: Ondansetron 4 MG/2 ML SDV IVPUSH PRN (09:15)
[2020-09-20] MEDS ORDERED: Albuterol 0.083% 2.5 MG/3 ML Neb Soln NEB PRN (09:15)
[2020-09-20] MEDS ORDERED: 50% Dextrose in Water 50 ML Syringe IVPUSH PRN (09:15)
[2020-09-20] MEDS ORDERED: EPINEPHrine 1:10,000 1 MG/10 ML Syringe IVPUSH PRN (09:15)
[2020-09-20] MEDS ORDERED: Acetaminophen/HYDROcodone 325-5 MG Tab PO PRN (10:23)
[2020-09-20] MEDS ORDERED: Morphine 10 MG/ML Syringe IVPUSH PRN (10:23)
--- NOTE | 2020-09-20 10:28 | PCM.OPNOTE ---
- General Post-Op/Procedure Note Date of Surgery/Procedure: 09/20/20 Operative Procedure(s): Laparoscopic cholecystectomy Pre Op Diagnosis: Symptomatic cholelithiasis Post-Op Diagnosis: Cholelithiasis with acute and chronic cholecystitis Anesthesia Technique: General ET Tube (ASA II) Primary Surgeon: Keven Badillo Automobile Washer Steam: Bj Guajardo Reason Automobile Washer Steam Was Necessary: Exposure and camera Fluid Replacement, Intraop: 1,200 EBL in mLs: 150 Condition: Good Free Text/Narrative:: Intake & Output 09/19/20 09/20/20 09/20/20 19:59 03:59 11:59 Output Total 100 Balance -100 DICTATION [id number] CPT CODE 91207
[2020-09-20] MEDS ORDERED: Lactated Ringers 1,000 ML IV SCH (10:30)
[2020-09-20] MEDS: fentaNYL 100 MCG/2 ML SDV IVPUSH PRN ×2 (10:36→10:48)
--- NOTE | 2020-09-20 10:54 | PCM.POSTAN ---
POST ANESTHESIA ASSESSMENT - MENTAL STATUS Mental Status: Alert, Oriented - VITAL SIGNS Vital Signs: Last Vital Signs Temp 36.5 C 09/20/20 10:21 Pulse 77 09/20/20 10:51 Resp 10 L 09/20/20 10:51 BP 118/70 09/20/20 10:51 Pulse Ox 94 L 09/20/20 10:51 - RESPIRATORY Respiratory Status: Respiratory Rate WNL, Airway Patent, O2 Saturation Stable - CARDIOVASCULAR CV Status: Pulse Rate WNL, Blood Pressure Stable - GASTROINTESTINAL GI Status: No Symptoms - PAIN Pain Score: 4 - POST OP HYDRATION Hydration Status: Adequate & Stable - OBSERVATIONS Free Text/Narrative:: The patient is awake, and is in no acute distress. He has no complaints at this time. There were no apparent anesthetic complications at this time. Discharge to phase 2 per criteria.
[2020-09-20] MEDS ORDERED: Ketorolac 15 MG/ML SDV IVPUSH ONE ×2 (11:45→22:45)
[2020-09-20] MEDS ORDERED: Ketorolac 30 MG/ML SDV IVPUSH ONE (11:50)
--- NOTE | 2020-09-20 12:35 | OR ---
SURGEON: Keven Badillo M.D. DATE OF PROCEDURE: 09/20/2020 OPERATION PERFORMED: Laparoscopic cholecystectomy. PRIMARY SURGEON: Keven Badillo M.D. DIRECTOR PAYMENT: Dr. Guajardo, PGY-2. ANESTHESIA: General endotracheal. ASA CLASSIFICATION: II. PREOPERATIVE DIAGNOSIS: Symptomatic cholelithiasis. POSTOPERATIVE DIAGNOSES: Acute and chronic cholecystitis with cholelithiasis. ESTIMATED BLOOD LOSS: 150 mL. INTRAOPERATIVE FLUID REPLACEMENT: 1200 mL of crystalloid. DESCRIPTION OF PROCEDURE: The patient was taken to the operating room and placed on the operating table in the supine position. Time-out was called for appropriate identification of the patient and procedure. Sequential compression boots were placed. Following satisfactory attainment of general endotracheal anesthesia, a Blair catheter was placed in the patient's urinary bladder. The abdomen was then prepped with DuraPrep solution and sterile drapes were applied. The skin just above the umbilicus was infiltrated with 0.5% Marcaine solution. Skin incision was made and deepened into the subcutaneous tissue obtaining hemostasis with the use of electrocautery. The Veress needle was introduced into the peritoneal cavity. Saline drop test was positive. Carbon dioxide pneumoperitoneum was established with the relief set at 13 cm of water. Once a satisfactory pneumoperitoneum was established, 12 mm subxiphoid, 5 mm midclavicular, and 5 mm anterior axillary ports were placed. Each incision was preemptively infiltrated with 0.5% Marcaine solution prior to incision. The patient was now positioned with his feet down and rolled to the left. Despite that, we could barely see the dome of the gallbladder. This was grasped, and all adhesions were taken down. It should be noted these adhesions were quite dense. Dissection was carried down completely mobilizing the gallbladder and identifying the infundibulum. With gentle dissection, we were able to identify the cystic duct and cystic artery. Critical view of each structure was obtained and confirmed on multiple occasions. With that accomplished, the cystic duct was triply clipped with a hemoclip radiology special procedure tech and then divided with a scissor. The cystic artery was handled in a similar fashion. The gallbladder was then dissected away from its bed. One small bleeding vessel was noted up towards the dome of the gallbladder, then that required a single hemoclip. Once the gallbladder was amputated, this was placed in an Endopouch. It should be noted that bile was spilled when the gallbladder decompressed. Multiple small stones were also spilled and all that were seen were removed with the [place] dissector. The bed of the gallbladder was then inspected, and minimal oozing was noted. The right upper quadrant was irrigated with sterile saline solution and all fluid aspirated. Surgicel and Avitene were placed into the bed of the gallbladder. The right hemidiaphragm was irrigated with 20 mL of 0.5% Marcaine in 250 mL of saline. This fluid was left in place. Under camera vision, all ports were removed. Wounds were inspected for hemostasis and small bleeding sites were electrocoagulated. The subxiphoid and supraumbilical incisions were closed in 2 layers approximating the subcutaneous tissue with 3-0 Vicryl and the skin with subcuticular 4-0 Monocryl. The anterior axillary and midclavicular incisions were also closed in 2 layers approximating the subcutaneous tissue with 3-0 Vicryl and the skin with subcuticular 4-0 Monocryl. All incisions were Steri-Stripped and dressed with sterile Tegaderm pads. Sponge, needle, and instrument counts were all correct. The Blair catheter was removed prior to emergence from anesthesia. Following emergence from anesthesia and extubation, the patient was taken to recovery room in stable condition. RELL RIVERA /[id number] MTDD
--- NOTE | 2020-09-20 12:40 | PCM48HPAN ---
Post Anesthesia Note - EVALUATION WITHIN 48HRS OF ANESTHETIC Vital Signs in Normal Range: Yes Patient Participated in Evaluation: Yes Respiratory Function Stable: Yes Airway Patent: Yes Cardiovascular Function Stable: Yes Hydration Status Stable: Yes Pain Control Satisfactory: Yes Nausea and Vomiting Control Satisfactory: Yes Mental Status Recovered: Yes Vital Signs: Last Vital Signs Temp 36.3 C 09/20/20 10:55 Pulse 82 09/20/20 11:55 Resp 16 09/20/20 11:55 BP 143/86 H 09/20/20 11:55 Pulse Ox 93 L 09/20/20 11:55 - COMMENTS/OBSERVATIONS Free Text/Narrative:: The patient states that his pain is controlled after receiving po pain medications, and toradol [address] Badillo was agreeable too. There were no apparent anesthetic complications noted at this time. Discharge per criteria.
--- NOTE | 2020-09-20 15:00 | PCM.SN.2 ---
- Free Text/Narrative Note: Called by Dr. Jansen, anesthesia, as patient is still mildly hypoxic on room air. SaO2 high 80-'s to low 90's. Maintains SaO2 about 90% with 3-4 L nasal cannula. Pain is now well controlled. Will admit for observation tonight and continue NC O2. Reassess in am.
[2020-09-20] MEDS: Acetaminophen/HYDROcodone 325-5 MG Tab PO PRN ×2 (16:16→22:17)
[2020-09-20] MEDS: Morphine 10 MG/ML Syringe IVPUSH PRN ×2 (16:55→18:12)
[2020-09-20] MEDS: Lactated Ringers 1,000 ML IV SCH (18:23)
--- NOTE | 2020-09-20 22:51 | PCM.SN.2 ---
- Free Text/Narrative Note: Called in to speak with Mr. Hancock and his RN Denita for an update on his progress. She stated that Mr. Hancock Saturations have been in high 80s, and he is still having pain. Then I spoke with Mr. Hancock, and he stated that he was still "hurting". I reviewed his medication regimen with Denita, and then discussed a plan with Dr. Badillo. Dr. Badillo is aware of the plan, and agrees. The plan is as follows(which was also reviewed with the patient's Nurse Denita): 1. Hypoxia: Patient most likely has undiagnosed CECILIA which is contributing to his low Saturations along with the narcotics that he has received. His oxygen therapy has been changed to increase Oxygen to maintain saturations at 93% or greater. Second order is for continuous monitoring of Oxygen Saturations. 2. Pain management: Overall goal is to use multimodal therapy to regain better pain control. Toradol 15 mg IV push now, and then Tramadol 50 mg po q 6 hours. Use Lee for breakthrough pain. The Morphine has been discontinued. 3. CECILIA: Dr. Badillo will discuss with the patient about being evaluated for Sleep Apnea. He may also reach out to the patient's primary care physician to recommend a Sleep Study Test.
[2020-09-21] MEDS: traMADol 50 MG Tab PO SCH ×4 (00:23→18:05)
[2020-09-21] MEDS ORDERED: Lidocaine 2% 5 ML SDV ONE (03:00)
[2020-09-21] MEDS ORDERED: Morphine 2 MG/ML SYRINGE ONE ×2 (03:18→04:51)
[2020-09-21] MEDS ORDERED: Morphine 4 MG/ML Syringe ONE (05:36)
--- NOTE | 2020-09-21 07:36 | PCM48HPAN ---
Post Anesthesia Note - EVALUATION WITHIN 48HRS OF ANESTHETIC Vital Signs in Normal Range: Yes Patient Participated in Evaluation: Yes Respiratory Function Stable: Yes Airway Patent: Yes Cardiovascular Function Stable: Yes Hydration Status Stable: Yes Pain Control Satisfactory: No Nausea and Vomiting Control Satisfactory: Yes Mental Status Recovered: Yes Vital Signs: Last Vital Signs Temp 37.2 C 09/21/20 00:00 Pulse 110 H 09/21/20 02:04 Resp 27 H 09/21/20 02:04 BP 149/85 H 09/21/20 02:04 Pulse Ox 92 L 09/21/20 02:04
[2020-09-21 07:45] LABS: CARBON DIOXIDE,CO2 26.1 mmol/L (21.0-32.0); POTASSIUM,K 3.2 mmol/L (3.5-5.1)
[2020-09-21] MEDS ORDERED: Ondansetron 4 MG/2 ML SDV IVPUSH PRN ×2 (08:08→08:34)
[2020-09-21] MEDS ORDERED: diphenhydrAMINE 25 MG Cap PO PRN ×2 (08:08→08:34)
[2020-09-21] MEDS ORDERED: diphenhydrAMINE 50 MG/ML SDV IVPUSH PRN ×2 (08:08→08:34)
[2020-09-21] MEDS ORDERED: Naloxone 0.4 MG/ML Syringe IVPUSH PRN ×2 (08:08→08:34)
--- NOTE | 2020-09-21 08:17 | PCM.SURGPN ---
- General Info Date of Service: 09/21/20 POD#: 1 Post-Op Diagnosis: Acute/chronic cholecystitis w/ cholelithiasis. Post op abdominal pain with distension. Gastric ileus. Hypoxemia. Functional Status: Reports: Incentive Spirometry. Denies: Pain Controlled, Tolerating Diet - Review of Systems General: Reports: Fatigue, Malaise. Denies: Fever, Chills, Appetite HEENT: Reports: No Symptoms Pulmonary: Reports: Shortness of Breath. Denies: Cough, Sputum, Hemoptysis, Wheezing Cardiovascular: Denies: Chest Pain, Palpitations Gastrointestinal: Reports: Abdominal Pain, Nausea, Other (distension.). Denies: Diarrhea, Flatus, Hematochezia, Melena, Vomiting Genitourinary: Denies: Dysuria, Frequency, Burning, Pain, Urgency Musculoskeletal: Denies: Neck Pain, Shoulder Pain Skin: Reports: Diaphoresis. Denies: Cyanosis, Jaundice, Mottled, Pallor, Dryness, Bruising Neurological: Denies: Confusion, Dizziness Psychiatric: Reports: Anxiety. Denies: Confusion, Depression - Patient Data Vitals - Most Recent: Last Vital Signs Temp 98.9 F 09/21/20 00:00 Pulse 110 H 09/21/20 02:04 Resp 27 H 09/21/20 02:04 BP 149/85 H 09/21/20 02:04 Pulse Ox 92 L 09/21/20 02:04 Weight - Most Recent: 251 lb Lab Results Last 24 Hrs: Laboratory Results - last 24 hr 09/21/20 09/21/20 Range/Units 04:49 04:49 WBC 15.89 H (4.0-11.0) K/uL RBC 4.90 (4.50-5.90) M/uL Hgb 15.5 (13.0-17.0) g/dL Hct 46.4 (38.0-50.0) % MCV 94.7 (80.0-98.0) fL MCH 31.6 (27.0-32.0) pg MCHC 33.4 (31.0-37.0) g/dL RDW Std Deviation 45.6 (28.0-62.0) fl RDW Coeff of Lida 13 (11.0-15.0) % Plt Count 164 (150-400) K/uL MPV 10.30 (7.40-12.00) fL Neut % (Auto) 90.0 H (48.0-80.0) % Lymph % (Auto) 4.9 L (16.0-40.0) % [place] % (Auto) 5.0 (0.0-15.0) % Eos % (Auto) 0.0 (0.0-7.0) % Baso % (Auto) 0.1 (0.0-1.5) % Neut # (Auto) 14.3 H (1.4-5.7) K/uL Lymph # (Auto) 0.8 (0.6-2.4) K/uL [place] # (Auto) 0.8 (0.0-0.8) K/uL Eos # (Auto) 0.0 (0.0-0.7) K/uL Baso # (Auto) 0.0 (0.0-0.1) K/uL Nucleated RBC % 0.0 /100WBC Nucleated RBCs # 0 K/uL Sodium 137 (136-148) mmol/L Potassium 3.2 L (3.5-5.1) mmol/L Chloride 100 (98-107) mmol/L Carbon Dioxide 26.1 (21.0-32.0) mmol/L BUN 34 H (7.0-18.0) mg/dL Creatinine 1.5 H (0.8-1.3) mg/dL Est Cr Clr Drug Dosing 45.90 mL/min Estimated GFR (MDRD) 47.0 ml/min Glucose 136 H (74-106) mg/dL Calcium 8.4 L (8.5-10.1) mg/dL Total Bilirubin 1.5 H (0.2-1.0) mg/dL Direct Bilirubin 0.50 (0.0-0.5) mg/dL Indirect Bilirubin 1.00 AST 36 (15-37) IU/L ALT 79 H (14-63) IU/L Alkaline Phosphatase 47 (46-116) U/L Total Protein 7.5 (6.4-8.2) g/dL Albumin 3.8 (3.4-5.0) g/dL Globulin 3.7 (2.6-4.0) g/dL Albumin/Globulin Ratio 1.0 (0.9-1.6) Med Orders - Current: Current Medications Hydrocodone Bitart/Acetaminophen ([place] 325-5 Mg) 1 - 2 tab PO Q4H PRN PRN Reason: Pain (moderate 4-6) Last Admin: 09/20/20 11:23 Dose: 2 tab Documented by: Hydrocodone Bitart/Acetaminophen ([place] 325-5 Mg) 1 - 2 tab PO Q4H PRN PRN Reason: Pain (moderate 4-6) Last Admin: 09/20/20 22:17 Dose: 2 tab Documented by: Albuterol (Proventil Neb Soln) 2.5 mg NEB ONETIME PRN PRN Reason: Wheezing Atropine Sulfate (Atropine 0.1 Mg/Ml) 0.5 mg IVPUSH ASDIRECTED PRN PRN Reason: Hypo-perfusion Atropine Sulfate (Atropine 0.1 Mg/Ml) 1 mg IVPUSH ASDIRECTED PRN PRN Reason: Hypo-Perfusion Dextrose/Water (Dextrose 50% In Water) 50 ml IVPUSH ASDIRECTED PRN PRN Reason: Hypoglycemia Epinephrine HCl (Epinephrine 1:10,000) 1 mg IVPUSH ASDIRECTED PRN PRN Reason: ACLS Guidelines Fentanyl (Sublimaze) 50 mcg IVPUSH Q5M PRN PRN Reason: Pain Last Admin: 09/20/20 10:48 Dose: 50 mcg Documented by: Lactated Ringer's (Ringers, Lactated) 1,000 mls @ 125 mls/hr IV ASDIRECTED [facility] Last Admin: 09/20/20 06:48 Dose: 125 mls/hr Documented by: Lactated Ringer's (Ringers, Lactated) 1,000 mls @ 125 mls/hr IV ASDIRECTED [facility] Lactated Ringer's (Ringers, Lactated) 1,000 mls @ 125 mls/hr IV ASDIRECTED [facility] Last Admin: 09/20/20 18:23 Dose: 125 mls/hr Documented by: Naloxone HCl (Narcan) 0.1 mg IVPUSH ASDIRECTED PRN PRN Reason: Respiratory Depression Ondansetron HCl (Zofran) 4 mg IVPUSH ONETIME PRN PRN Reason: Nausea/Vomiting Tramadol HCl (Ultram) 50 mg PO Q6HR [facility] Last Admin: 09/21/20 00:23 Dose: 50 mg Documented by: Discontinued Medications Bupivacaine HCl (Marcaine 0.5%) Confirm Administered Dose 30 ml .ROUTE .STK-MED ONE Stop: 09/20/20 07:50 Cefazolin Sodium (Ancef) Confirm Administered Dose 1 gm .ROUTE .STK-MED ONE Stop: 09/20/20 07:50 Dexamethasone (Dexamethasone) Confirm Administered Dose 20 mg .ROUTE .STK-MED ONE Stop: 09/20/20 07:06 Ephedrine Sulfate (Ephedrine Sulfate) Confirm Administered Dose 50 mg .ROUTE .STK-MED ONE Stop: 09/20/20 08:28 Fentanyl (Sublimaze) Confirm Administered Dose 250 mcg .ROUTE .STK-MED ONE Stop: 09/20/20 07:05 Glycopyrrolate (Robinul) Confirm Administered Dose 0.4 mg .ROUTE .STK-MED ONE Stop: 09/20/20 07:06 Glycopyrrolate (Robinul) Confirm Administered Dose 0.2 mg .ROUTE .STK-MED ONE Stop: 09/20/20 08:44 Glycopyrrolate (Robinul) Confirm Administered Dose 0.2 mg .ROUTE .ST-MED ONE Stop: 09/20/20 08:48 Cefoxitin Sodium 2 gm/ Premix 50 mls @ 100 mls/hr IV ONETIME ONE Stop: 09/20/20 06:29 Last Admin: 09/20/20 16:01 Dose: Not Given Documented by: Cefazolin Sodium/Dextrose (Ancef 2 Gm/50 Ml) Confirm Administered Dose 50 mls @ as directed .ROUTE .ST-MED ONE Stop: 09/20/20 07:10 Acetaminophen (Ofirmev 1000 Mg/100 Ml) Confirm Administered Dose 100 mls @ as directed .ROUTE .ST-MED ONE Stop: 09/20/20 07:46 Sodium Chloride (Normal Saline) Confirm Administered Dose 20 mls @ as directed .ROUTE .STK-MED ONE Stop: 09/20/20 08:28 Ketorolac Tromethamine (Toradol) Confirm Administered Dose 30 mg .ROUTE .STK-MED ONE Stop: 09/20/20 08:36 Ketorolac Tromethamine (Toradol) 15 mg IVPUSH ONETIME ONE Stop: 09/20/20 11:46 Last Admin: 09/20/20 16:18 Dose: Not Given Documented by: Ketorolac Tromethamine (Toradol) Confirm Administered Dose 30 mg .ROUTE .STK-MED ONE Stop: 09/20/20 11:35 Last Admin: 09/20/20 16:02 Dose: Not Given Documented by: Ketorolac Tromethamine (Toradol) 15 mg IVPUSH ONETIME ONE Stop: 09/20/20 11:51 Last Admin: 09/20/20 11:40 Dose: 15 mg Documented by: Ketorolac Tromethamine (Toradol) 15 mg IVPUSH ONETIME ONE Stop: 09/20/20 22:46 Last Admin: 09/20/20 22:44 Dose: 15 mg Documented by: Lidocaine (Xylocaine-Mpf 2%) Confirm Administered Dose 5 ml .ROUTE .STK-MED ONE Stop: 09/20/20 07:06 Midazolam HCl (Versed 1 Mg/Ml) Confirm Administered Dose 2 mg .ROUTE .STK-MED ONE Stop: 09/20/20 07:05 Morphine Sulfate (Morphine) 0 mg IVPUSH Q30M PRN PRN Reason: Pain Last Admin: 09/20/20 20:03 Dose: 2 mg Documented by: Morphine Sulfate (Morphine) 0 mg IVPUSH Q1H PRN PRN Reason: Pain (severe 7-10) Last Admin: 09/20/20 18:12 Dose: 2 mg Documented by: Ondansetron HCl (Zofran) Confirm Administered Dose 4 mg .ROUTE .STK-MED ONE Stop: 09/20/20 07:06 Propofol (Diprivan 20 Ml) Confirm Administered Dose 200 mg .ROUTE .STK-MED ONE Stop: 09/20/20 07:05 Rocuronium [place] (Rocur[place]) Confirm Administered Dose 50 mg .ROUTE . STK-MED ONE Stop: 09/20/20 07:06 - Exam Wound/Incisions: Dressing Dry and Intact Quality Assessment: Supplemental Oxygen (3-5 L/min), DVT Prophylaxis General: Alert, Oriented, Cooperative, Moderate Distress HEENT: Pupils Equal, Pupils Reactive. No: Scleral Icterus Neck: Supple Lungs: Clear to Auscultation, Other (tachypneic). No: Crackles, Rales, Rhonchi Cardiovascular: Regular Rate, Regular Rhythm, No Murmurs, Tachycardia GI/Abdominal Exam: Distended, Tender, Abnormal Bowel Sounds (hypoactive), Hernia (umbilical). No: Guarding, Rigid Extremities: Normal Inspection, Normal Range of Motion Skin: Warm, Dry, Intact Neurological: No New Focal Deficit Psy/Mental Status: Alert, Normal Affect, Anxious Sepsis Event Note - Evaluation Sepsis Screening Result: No Definite Risk - Focused Exam Vital Signs: Vital Signs Temp Pulse Resp BP Pulse Ox Pulse Ox 09/21/20 02:04 110 H 27 H 149/85 H 92 L 09/21/20 00:00 98.9 F 98 18 134/79 95 09/20/20 23:19 92 L - Problem List & Annotations (1) Cholelithiasis and cholecystitis without obstruction SNOMED Code(s): 03694336 Code(s): K80.10 - CALCULUS OF GALLBLADDER W CHRONIC CHOLECYST W/O OBSTRUCTION Status: Acute Priority: Medium Current Visit: Yes Qualifiers: Cholecystitis acuity: acute and chronic (2) Hypoxemia SNOMED Code(s): 181614950 Code(s): R09.02 - HYPOXEMIA Status: Acute Priority: High Current Visit: Yes (3) Abdominal distention SNOMED Code(s): 25335657 Code(s): R14.0 - ABDOMINAL DISTENSION (GASEOUS) Status: Acute Priority: High Current Visit: Yes - Problem List Review Problem List Initiated/Reviewed/Updated: Yes - My Orders Last 24 Hours: Active Orders 24 hr Category Date Time Status Admission Status [Patient Status] [ADT] Routine ADT 09/20/20 14:55 Active Antiembolic Devices [RC] PER UNIT ROUTINE Care 09/20/20 10:23 Active Antiembolic Devices [RC] PER UNIT ROUTINE Care 09/20/20 10:23 Active Antiembolic Devices [RC] PER UNIT ROUTINE Care 09/20/20 14:58 Active Communication Order [RC] PER UNIT ROUTINE Care 09/21/20 08:10 Ordered Gastrointestinal Tube Mgmt [RC] ASDIRECTED Care 09/21/20 07:49 Active Intake and Output [RC] Q12H Care 09/20/20 14:54 Active Notify Provider Vital Signs [RC] ASDIRECTED Care 09/20/20 09:15 Active Overnight Pulse Oximetry [RC] Click to Edit Care 09/20/20 22:35 Active Oxygen Therapy Adult [Oxygen Therapy] [RC] ASDIRECTED Care 09/20/20 23:19 Active Oxygen Therapy [RC] PRN Care 09/20/20 10:23 Active Oxygen Therapy [RC] PRN Care 09/20/20 14:54 Active MARKETING ASSISTANT Record [RC] Q4H Care 09/21/20 08:10 Ordered Pulse Oximetry [RC] INTERMITTENT Care 09/20/20 10:23 Active Pulse Oximetry [RC] INTERMITTENT Care 09/20/20 14:54 Active RT Aerosol Therapy [RC] ASDIRECTED Care 09/20/20 09:15 Active RT Aerosol Therapy [RC] ASDIRECTED Care 09/20/20 09:15 Active RT Incentive Spirometry [RC] Q1HWA Care 09/20/20 14:54 Active Ready for Discharge [RC] PER UNIT ROUTINE Care 09/20/20 10:30 Active Up ad Brianda [RC] ASDIRECTED Care 09/20/20 14:54 Active Up ad Brianda [RC] PER UNIT ROUTINE Care 09/20/20 10:23 Active Vital Signs [RC] PER UNIT ROUTINE Care 09/20/20 10:23 Active Vital Signs [RC] PER UNIT ROUTINE Care 09/20/20 14:54 Active Vital Signs [RC] PER UNIT ROUTINE Care 09/21/20 08:10 Ordered Advance Diet Instructions [DIET] Diet 09/20/20 Dinner Active Regular Diet [DIET] Diet 09/20/20 Dinner Active HIDA with EF [Cholescintigraphy w Pharm Int] [NM] Exams 09/21/20 08:05 Ordered Urgent Acetaminophen/HYDROcodone [[place] 325-5 MG] Med 09/20/20 14:57 Active 1 - 2 tab PO Q4H PRN Dextrose 50% in Water Med 09/20/20 09:15 Active 50 ml IVPUSH ASDIRECTED PRN HYDROmorphone/Normal Saline [Dilaudid MARKETING ASSISTANT 10 MG in NS Med 09/21/20 08:08 Stat 50 ML] 0.2 mg IV NOW STA Lactated Ringers [Ringers, Lactated] 1,000 ml Med 09/20/20 15:00 Active IV ASDIRECTED Naloxone [Narcan] Med 09/21/20 08:08 Ordered 0.04 mg IVPUSH Q3M PRN Ondansetron [Zofran] Med 09/20/20 09:15 Active 4 mg IVPUSH ONETIME PRN Ondansetron [Zofran] Med 09/21/20 08:08 Ordered 4 mg IVPUSH Q6H PRN diphenhydrAMINE [Benadryl] Med 09/21/20 08:08 Ordered 25 mg IVPUSH Q6H PRN diphenhydrAMINE [Benadryl] Med 09/21/20 08:08 Ordered 25 mg PO Q6H PRN traMADol [Ultram] Med 09/21/20 00:00 Active 50 mg PO Q6HR Antiembolic Hose [OM.PC] Routine Oth 09/20/20 14:54 Ordered Nasogastric Orogastric Tube Insertion [OM.PC] Routine Oth 09/21/20 07:49 Ordered Pulse Oximetry Continuous Monitoring [OM.PC] Routine Oth 09/20/20 22:35 Ordered Pulse Oximetry Continuous Monitoring [OM.PC] Routine Oth 09/21/20 08:10 Ordered Sequential Compression Device [OM.PC] Routine Oth 09/20/20 10:23 Ordered Sequential Compression Device [OM.PC] Routine Oth 09/20/20 14:54 Ordered Medication Orders Hydrocodone Bitart/Acetaminophen ([place] 325-5 Mg) 1 - 2 tab PO Q4H PRN PRN Reason: Pain (moderate 4-6) Last Admin: 09/20/20 11:23 Dose: 2 tab Documented by: TIM Hydrocodone Bitart/Acetaminophen ([place] 325-5 Mg) 1 - 2 tab PO Q4H PRN PRN Reason: Pain (moderate 4-6) Last Admin: 09/20/20 22:17 Dose: 2 tab Documented by: Admin: 09/20/20 16:16 Dose: 2 tab Documented by: ROBSON Albuterol (Proventil Neb Soln) 2.5 mg NEB ONETIME PRN PRN Reason: Wheezing Atropine Sulfate (Atropine 0.1 Mg/Ml) 0.5 mg IVPUSH ASDIRECTED PRN PRN Reason: Hypo-perfusion Atropine Sulfate (Atropine 0.1 Mg/Ml) 1 mg IVPUSH ASDIRECTED PRN PRN Reason: Hypo-Perfusion Dextrose/Water (Dextrose 50% In Water) 50 ml IVPUSH ASDIRECTED PRN PRN Reason: Hypoglycemia Epinephrine HCl (Epinephrine 1:10,000) 1 mg IVPUSH ASDIRECTED PRN PRN Reason: ACLS Guidelines Fentanyl (Sublimaze) 50 mcg IVPUSH Q5M PRN PRN Reason: Pain Last Admin: 09/20/20 10:48 Dose: 50 mcg Documented by: Admin: 09/20/20 10:36 Dose: 50 mcg Documented by: JESSICA Lactated Ringer's (Ringers, Lactated) 1,000 mls @ 125 mls/hr IV ASDIRECTED [facility] Last Admin: 09/20/20 06:48 Dose: 125 mls/hr Documented by: TIM Lactated Ringer's (Ringers, Lactated) 1,000 mls @ 125 mls/hr IV ASDIRECTED [facility] Lactated Ringer's (Ringers, Lactated) 1,000 mls @ 125 mls/hr IV ASDIRECTED [facility] Last Admin: 09/20/20 18:23 Dose: 125 mls/hr Documented by: ROBSON Naloxone HCl (Narcan) 0.1 mg IVPUSH ASDIRECTED PRN PRN Reason: Respiratory Depression Ondansetron HCl (Zofran) 4 mg IVPUSH ONETIME PRN PRN Reason: Nausea/Vomiting Tramadol HCl (Ultram) 50 mg PO Q6HR [facility] Last Admin: 09/21/20 00:23 Dose: 50 mg Documented by: MICHAELAR - Assessment Assessment (Free Text/Narrative):: Post-operative abdominal pain with distension. NG output 1200 ml when tube first inserted. H/H are good. Note elevated WBC which may be partly a stress response as he is afebrile. Unable to get adequate pain control with Morphine, so will switch to Dilaudid. Hepati-biliary scan ordered to look for bile leak. May need to do a CT scan. - Plan Plan (Free Text/Narrative):: NPO. NG. HIDA scan ordered. Dilaudid MARKETING ASSISTANT ordered for today.
[2020-09-21] MEDS ORDERED: HYDROmorphone 1 MG/ML Syringe IVPUSH STA (08:18)
[2020-09-21] MEDS ORDERED: HYDROmorphone/Normal Saline 10 MG/50 ML PCA IV PRN (08:34)
[2020-09-21] MEDS ORDERED: HYDROmorphone 1 MG/ML Syringe IV STA (08:39)
[2020-09-21] MEDS ORDERED: Benzocaine/Cetylpyridinium/Menthol Lozenge MUCMEM PRN (09:16)
[2020-09-21] MEDS ORDERED: HYDROmorphone 1 MG/ML Syringe IV PRN (09:40)
--- NOTE | 2020-09-21 09:40 | CR ---
EXAM DATE: 09/20/20 PATIENT'S AGE: 65 Patient: INDY TY Facility: [facility] Site . Site : [id number] Study: [id number]-2/9/2021 3:23:25 AM Ordering Physician: Keven Badillo Final Report: Indication: NG tube placement Technique: Frontal view of the abdomen Comparison: None Findings/Impression: Gastric tube is appropriately positioned, with distal end situated in the gastric fundus. A few nonspecific prominent small bowel loops are noted in the mid abdomen. Dictated by Zeke Garrison MD @ Sep 21 2020 3:52AM Signed by: Zeke Garrison MD @09/21/2020 3:53:47 AM (Electronic Signature) Report Signed by Proxy. ROSHAN
[2020-09-21] MEDS ORDERED: Lactated Ringers 1,000 ML IV SCH (09:45)
[2020-09-21] MEDS ORDERED: Acetaminophen 1,000 MG in Premix Bag 1 BAG IV PRN (10:22)
--- NOTE | 2020-09-21 11:08 | CR ---
Indication: Hypoxemia Technique: Chest 1 view Comparison: None Findings/Impression: Cardiovascular and mediastinum: Heart borders are obscured. Pulmonary vasculature appears normal. NG tube is coiled in satisfactory position in the stomach. Lungs and pleural space: Very low lung volumes. Bibasilar atelectasis or pleural effusions suspected. No pneumothorax. Bones and soft tissues: No acute findings. Dictated by Mohsen Lee MD @ Sep 21 2020 11:02AM Signed by Dr. Mohsen Lee @ Sep 21 2020 11:06AM
--- NOTE | 2020-09-21 11:12 | PCM.SN.2 ---
- Free Text/Narrative Note: Went to evaluate Mr. Hancock, no improvement in hypoxemia. Patient switched to Dilaudid life guard, and patient reports that pain is less. Reviewed first cxr with Radiologist via phone. I can't recall the name of the Radiologist that I spoke too. The "wet" read: was low lung volumes. The recommendation by the Radiologist was to repeat the CXR because the first one was not optimal. Second CXR was ordered and reviewed with Dr. Lee(Radiologist). Dr. Lee recommended a Chest CT which was ordered by Dr. Chris Mclain's team. I also ordered one dose of Tylenol for now. Possible diagnosis on hypoxemia include decreased lung volumes secondary to abdominal distention, with possible infection and/or atelectasis which is currently under evaluation by Dr. Mclain. The possible differential diagnoses and Mr. Hancock's intraoperative course was discussed with Dr. Mclain. Thank you Dr. Mclain for assisting us in the care of Mr. Hancock. Second potential problem could be a possible bile leak, and a ileus which is currently under evaluation by Dr. Badillo.
--- NOTE | 2020-09-21 12:11 | CT ---
Indication: Hypoxia. Technique: CT of the chest without IV contrast. Coronal and sagittal reconstructions. Comparison: Chest radiograph 09/21/2020. Findings: Heart size upper limits of normal. Normal caliber thoracic aorta and central pulmonary arteries. No pericardial effusion. No thoracic lymphadenopathy. The thyroid gland is normal in appearance. Marked low lung volumes with mild asymmetric elevation of the right hemidiaphragm. Consolidation in the right lower lobe may represent atelectasis or infiltrate. Patchy and linear opacities in the left lung base most likely represent atelectasis. No pleural effusion or pneumothorax. No pulmonary nodules identified. No central endobronchial lesion. Enteric tube with tip in the gastric fundus. Partially visualized liver is enlarged and markedly steatotic. Cholecystectomy. Small amount of gas and fluid in the gallbladder fossa suggest recent surgery. Small amount of ascites in the upper abdomen. Hypertrophic spurring of the mid thoracic spine. Impression: 1. Marked low lung volumes. 2. Consolidation in the right lower lobe may represent atelectasis or infiltrate. Atelectasis in the left lung base. 3. Hepatomegaly with marked hepatic steatosis. 4. Likely recent cholecystectomy with small amount of gas and fluid in the gallbladder fossa. 5. Small amount of ascites in the upper abdomen. Please note that all CT scans at this facility use dose modulation, iterative reconstruction, and/or weight-based dosing when appropriate to reduce radiation dose to as low as reasonably achievable. Dictated by Rihannon Choi MD @ Sep 21 2020 12:01PM Signed by Dr. Rhiannon Choi @ Sep 21 2020 12:10PM
--- NOTE | 2020-09-21 12:18 | PCM.CONS ---
H&P History of Present Illness - General Date of Service: 09/21/20 Admit Problem/Dx: Admission Diagnosis/Problem Admission Diagnosis/Problem Hypoxemia requiring supplemental oxygen Source of Information: Patient, Family History Limitations: Reports: No Limitations - History of Present Illness Initial Comments - Free Text/Narative: This is a 65-year-old male with past medical history of HLD and HTN admitted yesterday evening after elective laparoscopic cholecystectomy with Dr. Badillo. This morning patient noted to be hypoxic with chest x-ray appearing to have significant atelectasis and/or pleural effusion. Hospitalist team consulted for further evaluation. Chest CT ordered due to poor lung volumes on chest x-ray and further evaluation of lung tissue. CT of the chest noncontrast was obtained and this reveals marked low lung volumes, consolidation in the right lower lobe which could represent atelectasis or infiltrate. There is atelectasis noted in the left lung base. Patient's leukocytosis noted this morning at 15.8 platelets 164,000 neutrophil count elevated at 90%. Patient is noted to be tachypneic as well as tachycardic heart rates in the low 100s. Temperature 99.1. Patient satting low 90s on 5 L nasal cannula. Patient seen and evaluated alongside Dr. Chris Mclain, hospitalist. Patient appears tachypneic and taking very shallow breaths due to abdominal distention and abdominal pain. He reports that the Dilaudid [employer] he recently had started this morning is helping more with pain. NG tube noted in left nare draining dark brown stomach fluid. Patient reports he is not passing any gas and feels significantly bloated with significant distention. Reports that the pain is in his lower abdomen. He reports he has been urinating. He he denies any coughing. He denies significant shortness of breath but feels that he is unable to take a deep breath secondary to abdominal pain and distention. He has been counseled heavily on use of I-S along with splinting with coughing and deep breathing. at bedside during this entire time. He has no history of CAD or CVA and no lung disease. He denies any chest pain palpitations. Denies any history of significant postsurgical complications. Denies any history of PE or DVT in the past. Abdomen Pain Score (Numeric/FACES): 3 Right Abdomen Pain Score (Numeric/FACES): 10 - Related Data Allergies/Adverse Reactions: Allergies Allergy/AdvReac Type Severity Reaction Status Date / Time venom-honey bee Allergy Swelling Verified 09/20/20 17:03 [bee venom (honey bee)] Home Medications: Home Meds amLODIPine Besylate [Amlodipine Besylate] 5 mg PO QAM 02/01/15 [History] Omeprazole 40 mg PO DAILY 11/04/15 [History] Losartan [Cozaar] 50 mg PO QAM 09/19/17 [History] Chlorthalidone 25 mg PO DAILY 09/16/20 [History] Fluticasone Propionate [Flonase Allergy Relief] 2 spray NASBOTH DAILY PRN 09/16/20 [History] Loperamide HCl [Imodium A-D] 2 mg PO ASDIRECTED PRN 09/16/20 [History] Meloxicam 15 mg PO DAILY 09/16/20 [History] Pravastatin [Pravachol] 40 mg PO DAILY 09/16/20 [History] Acetaminophen/HYDROcodone [[place] 325-5 MG] 1 tab PO Q6H PRN #15 tablet 09/20/20 [Rx] Past Medical History HEENT History: Reports: Allergic Rhinitis, Other (See Below) Other HEENT History: wears glasses, currently has a sinus infection Cardiovascular History: Reports: Hypertension (ekg nsr, rate=63), Other (See Below) (high high cholesterol) Respiratory History: Reports: Other (See Below) (possible CECILIA undiagnosed) Gastrointestinal History: Reports: Cholelithiasis, Colon Polyp, GERD (controlled) Genitourinary History: Reports: Renal Calculus Musculoskeletal History: Reports: Arthritis Other Musculoskeletal History: hands Neurological History: Reports: None Psychiatric History: Reports: None Endocrine/Metabolic History: Reports: Obesity/BMI 30+ Hematologic History: Reports: None Immunologic History: Reports: None Oncologic (Cancer) History: Reports: None Dermatologic History: Reports: None - Infectious Disease History Infectious Disease History: Reports: None - Past Surgical History Head Surgeries/Procedures: Reports: None HEENT Surgical History: Reports: Tonsillectomy Cardiovascular Surgical History: Reports: None GI Surgical History: Reports: Colonoscopy, Other (See Below) Other GI Surgeries/Procedures: Anal Fistulectomy, I&D of Perirectal Abscess Male Surgical History: Reports: Other (See Below) Other Male Surgeries/Procedures: right hydrocelectomy Endocrine Surgical History: Reports: None Neurological Surgical History: Reports: None Musculoskeletal Surgical History: Reports: Carpal Tunnel, Shoulder Surgery Other Musculoskeletal Surgeries/Procedures:: bilateral RTCR, bilateral CTR Social & Family History - Family History Family Medical History: No Pertinent Family History - Tobacco Use Tobacco Use Status *Q: Former Tobacco User (> 25 years ago, chewed tobacco) Tobacco Use Comment: quit chew 30 years ago - Caffeine Use Caffeine Use: Reports: Coffee - Alcohol Use Days Per Week of Alcohol Use: 3 Number of Drinks Per Day: 1 Total Drinks Per Week: 3 Alcohol Use Frequency: Daily (Patient reports that he does drink 1 shot maybe every day or every couple days depending. He denies any overt alcohol withdrawal symptoms when he does not drink for long period of time.) - Recreational Drug Use Recreational Drug Use: No Drug Use in Last 12 Months: No H&P Review of Systems - Review of Systems: Review Of Systems: See Below General: Reports: Weakness, Fatigue. Denies: Fever, Chills HEENT: Denies: Headaches, Rhinitis, Sinus Congestion, Visual Changes Pulmonary: Reports: Shortness of Breath (Feels breath is limited by abdominal distention). Denies: Pleuritic Chest Pain, Cough, Sputum, Hemoptysis Cardiovascular: Reports: Dyspnea on Exertion. Denies: Chest Pain, Edema Gastrointestinal: Reports: Abdominal Pain (Lower abdomen). Denies: Black Stool, Bloody Stool, Flatus, Nausea, Vomiting Genitourinary: Reports: No Symptoms. Denies: Dysuria, Frequency, Retention Musculoskeletal: Reports: No Symptoms Skin: Reports: No Symptoms Psychiatric: Reports: No Symptoms Exam - Exam Exam: See Below - Vital Signs Vital Signs: Last Vital Signs Temp 99.1 F 09/21/20 08:00 Pulse 122 H 09/21/20 08:00 Resp 20 09/21/20 08:00 BP 148/100 H 09/21/20 08:00 Pulse Ox 90 L 09/21/20 08:00 Weight: 113.852 kg - Exam Quality Assessment: Supplemental Oxygen (5 L nasal cannula), DVT Prophylaxis (SCDs and EMMETT hose noted) General: Alert, Oriented, Cooperative, Mild Distress (Tachypnea and abdominal pain) HEENT: Conjunctiva Clear, Mucosa Moist & [place], Normal Nasal Septum Lungs: Decreased Breath Sounds (Bibasilar). No: Normal Respiratory Effort (Significant shortness of breath and shallow respirations), Crackles, Wheezing Cardiovascular: Regular Rhythm, Tachycardia. No: Systolic Murmur GI/Abdominal Exam: Normal Bowel Sounds, Distended, Tender. No: Soft Extremities: Normal Inspection, Normal Range of Motion, Non-Tender, No Pedal Jaun ma Skin: Warm, Dry, Incision Neuro Extensive - Mental Status: Alert, Oriented x3, Normal Mood/Affect Psychiatric: Alert, Normal Affect, Normal Mood - Patient Data Lab Results Last 24 hrs: Laboratory Results - last 24 hr 09/21/20 09/21/20 Range/Units 04:49 04:49 WBC 15.89 H (4.0-11.0) K/uL RBC 4.90 (4.50-5.90) M/uL Hgb 15.5 (13.0-17.0) g/dL Hct 46.4 (38.0-50.0) % MCV 94.7 (80.0-98.0) fL MCH 31.6 (27.0-32.0) pg MCHC 33.4 (31.0-37.0) g/dL RDW Std Deviation 45.6 (28.0-62.0) fl RDW Coeff of Lida 13 (11.0-15.0) % Plt Count 164 (150-400) K/uL MPV 10.30 (7.40-12.00) fL Neut % (Auto) 90.0 H (48.0-80.0) % Lymph % (Auto) 4.9 L (16.0-40.0) % [place] % (Auto) 5.0 (0.0-15.0) % Eos % (Auto) 0.0 (0.0-7.0) % Baso % (Auto) 0.1 (0.0-1.5) % Neut # (Auto) 14.3 H (1.4-5.7) K/uL Lymph # (Auto) 0.8 (0.6-2.4) K/uL Maury # (Auto) 0.8 (0.0-0.8) K/uL Eos # (Auto) 0.0 (0.0-0.7) K/uL Baso # (Auto) 0.0 (0.0-0.1) K/uL Nucleated RBC % 0.0 /100WBC Nucleated RBCs # 0 K/uL Sodium 137 (136-148) mmol/L Potassium 3.2 L (3.5-5.1) mmol/L Chloride 100 (98-107) mmol/L Carbon Dioxide 26.1 (21.0-32.0) mmol/L BUN 34 H (7.0-18.0) mg/dL Creatinine 1.5 H (0.8-1.3) mg/dL Est Cr Clr Drug Dosing 45.90 mL/min Estimated GFR (MDRD) 47.0 ml/min Glucose 136 H (74-106) mg/dL Calcium 8.4 L (8.5-10.1) mg/dL Total Bilirubin 1.5 H (0.2-1.0) mg/dL Direct Bilirubin 0.50 (0.0-0.5) mg/dL Indirect Bilirubin 1.00 AST 36 (15-37) IU/L ALT 79 H (14-63) IU/L Alkaline Phosphatase 47 (46-116) U/L Total Protein 7.5 (6.4-8.2) g/dL Albumin 3.8 (3.4-5.0) g/dL Globulin 3.7 (2.6-4.0) g/dL Albumin/Globulin Ratio 1.0 (0.9-1.6) Result Diagrams: 09/21/20 04:49 09/21/20 04:49 Sepsis Event Note - Evaluation Sepsis Screening Result: No Definite Risk - Focused Exam Vital Signs: Vital Signs Temp Pulse Resp BP Pulse Ox 09/21/20 08:00 99.1 F 122 H 20 148/100 H 90 L 09/21/20 02:04 110 H 27 H 149/85 H 92 L Consult PN Assessment/Plan POD#: 1 Procedures: Procedures ASSAY OF LACTIC ACID (04/26/19) ASSAY OF LIPASE (02/01/15) BLOOD CULTURE FOR BACTERIA (04/26/19) COLONOSCOPY AND BIOPSY (09/24/17) COMPLETE CBC W/AUTO DIFF WBC (04/26/19) COMPREHEN METABOLIC PANEL (04/26/19) CT ABD & PELV W/CONTRAST (02/05/15) CULTR BACTERIA EXCEPT BLOOD (11/05/15) CULTURE OTHR SPECIMN AEROBIC (11/05/15) CULTURE SCREEN ONLY (04/26/19) ECHO EXAM OF ABDOMEN (02/01/15) ELECTROCARDIOGRAM TRACING (01/21/18) EMERGENCY DEPT VISIT (04/26/19) EMERGENCY DEPT VISIT (01/26/18) EMERGENCY DEPT VISIT (02/01/15) EXC H-F-NK-SP B9+EDDI 2.1-3 (11/05/15) HETEROPHILE ANTIBODY SCREEN (04/26/19) HYDRATION IV INFUSION INIT (04/26/19) INFLUENZA ASSAY W/OPTIC (04/26/19) KNEE ARTHROSCOPY/SURGERY (01/21/18) MRI JNT OF LWR EXTRE W/O DYE (10/19/17) MRI JOINT UPR EXTREM W/O DYE (12/06/16) ROUTINE VENIPUNCTURE (02/01/15) SMEAR GRAM STAIN (11/05/15) STREP A ASSAY W/OPTIC (04/26/19) THER/PROPH/DIAG INJ SC/IM (01/26/18) THER/PROPH/DIAG IV INF INIT (01/26/18) URINALYSIS AUTO W/SCOPE (04/26/19) X-RAY EXAM CHEST 2 VIEWS (04/26/19) X-RAY EXAM KNEE 4 OR MORE (12/07/16) X-RAY EXAM OF SHOULDER (06/01/16) (1) Status post laparoscopic cholecystectomy SNOMED Code(s): 852081854, 19983969, 595406996 Code(s): Z90.49 - ACQUIRED ABSENCE OF OTHER SPECIFIED PARTS OF DIGESTIVE TRACT Current Visit: Yes (2) Ileus SNOMED Code(s): 855638195 Code(s): K56.7 - ILEUS, UNSPECIFIED Current Visit: Yes (3) Hypertension SNOMED Code(s): 67411328 Code(s): I10 - ESSENTIAL (PRIMARY) HYPERTENSION Current Visit: Yes Qualifiers: Hypertension type: essential hypertension Qualified Code(s): I10 - Essential (primary) hypertension (4) Hyperlipidemia SNOMED Code(s): 29122017 Code(s): E78.5 - HYPERLIPIDEMIA, UNSPECIFIED Current Visit: Yes (5) Acute respiratory failure with hypoxia SNOMED Code(s): 70484519, 624650681 Code(s): J96.01 - ACUTE RESPIRATORY FAILURE WITH HYPOXIA Current Visit: Yes (6) HCAP (healthcare-associated pneumonia) SNOMED Code(s): 650505611, 377421310 Code(s): J18.9 - PNEUMONIA, UNSPECIFIED ORGANISM Current Visit: Yes Problem List Initiated/Reviewed/Updated: Yes Plan: This 65-year-old male admitted status post laparoscopic cholecystectomy. Hospitalist consult placed today due to hypoxia with acute respiratory failure 1. Status post laparoscopic cholecystectomy -Orders per Dr. Badillo -Significant abdominal distention and pain noted -CTA of abdomen obtained results pending -Monitor electrolytes daily. We will replace potassium today and check magnesium. 2. Acute hypoxic respiratory failure -Patient requiring 5 L nasal cannula to keep sats 90% or greater. -Chest CT reveals possible consolidation in right lower lobe. -Considering leukocytosis along with mild elevated temperatures will start Zosyn 4.5 mg every 6 hours IV for possible HCAP -Patient along with counseled heavily on I-S use every 1 hour at least 10 times. -Patient also counseled on splinting with coughing and deep breathing. 3. HTN/HLD -Continue to monitor -Hold medications as NG tube in place VTE prophylaxis: Would recommend when deemed appropriate by surgical team. GI prophylaxis: Protonix daily Radiology findings along with lab work discussed at length with Dr. Chris Mclain.
[2020-09-21] MEDS ORDERED: Iopamidol 755 MG/ML 500 ML Multipack Bottle IVPUSH STA (12:25)
--- NOTE | 2020-09-21 12:44 | CT ---
INDICATION: Status post cholecystectomy. Evaluate for bile leak TECHNIQUE: CTA abdomen and pelvis acquired with IV contrast. 100 cc Isovue 370 COMPARISON: None FINDINGS: Lower chest: Lower lobe opacity consistent with atelectasis and/or pneumonia. Small right pleural effusion. Probable atelectasis left lower lobe. Liver: Hepatomegaly with hepatic steatosis. Spleen: Small appearing spleen. Pancreas: Unremarkable. Gallbladder and bile ducts: Status post cholecystectomy. Small amount of gas and fluid in the gallbladder fossa. Grossly normal appearing common bile duct. Kidneys: Unremarkable. Adrenal glands: Unremarkable. GI tract: Enteric tube tip coiled in the body of the stomach. Vascular structures: Unremarkable. Lymph nodes: Unremarkable. Miscellaneous: Fat containing umbilical hernia. No free air. Small amount of mixed density perihepatic fluid extending into the right pericolic gutter. Pelvic Organs: Unremarkable. Bones: Unremarkable for age. IMPRESSION: Status post cholecystectomy with small amount of gas and debris in the gallbladder fossa. Mixed density parapelvic fluid lateral to the liver extending into the right pericolic gutter. Findings worrisome for bile leak. Grossly normal appearing common bile duct with no retained calculi. No intrahepatic biliary duct dilatation. Small right pleural effusion with adjacent airspace opacity consistent with atelectasis and/or pneumonia. Left lower lobe atelectasis is present. Hepatomegaly with hepatic steatosis. Please note that all CT scans at this facility use dose modulation, iterative reconstruction, and/or weight-based dosing when appropriate to reduce radiation dose to as low as reasonably achievable. Dictated by Paco Pappas MD @ Sep 21 2020 12:44PM Signed by Dr. Paco Pappas @ Sep 21 2020 12:44PM
[2020-09-21] MEDS ORDERED: Piperacillin/Tazobactam 4.5 GM in Sodium Chloride 0.9% 100 ML IV SCH (12:45)
[2020-09-21] MEDS ORDERED: Sodium Chloride 0.9% with KCl 1,000 ML IV ONE (13:43)
[2020-09-21] MEDS ORDERED: Pantoprazole 40 MG in Sodium Chloride 0.9% 10 ML IV SCH (13:45)
[2020-09-21] MEDS ORDERED: Albuterol/Ipratropium 3.0-0.5 MG/3 ML Neb Soln NEB PRN (13:46)
[2020-09-21] MEDS: Lactated Ringers 1,000 ML IV SCH (13:47)
[2020-09-21] MEDS ORDERED: Magnesium Sulfate/Water 2 GM/50 ML BAG IV ONE (14:20)
[2020-09-21] MEDS ORDERED: Acetaminophen 1,000 MG in Premix Bag 1 BAG IV ONE (16:11)
[2020-09-21 17:20] VITALS: BP 116/75; PULSE 113
--- NOTE | 2020-09-21 17:22 | PCM.DCSUM1 ---
Discharge Summary - Hospital Course Free Text/Narrative:: 65 y/o gentleman who underwent an elective laparoscopic cholecystectomy yesterday. Marked adhesions were present to the gallbladder and these were able to be taken down laparoscopically. I was able to place two clips on the cystic duct close to the gallbladder as well as two clips on the cystic artery close to the gallbladder. Some bile and stones were spilled but he was carefully irrigated on several occasions and all visualized stone material was retrieved. Avitene and Surgicel were placed into the bed of the gallbladder. He was admitted to the hospital after surgery as he was mildly hypoxic with SaO2s of 88-92 % on room air. About 0200 hours this morning he had sudden onset of abdominal pain with distension. NG was passed with return of 1200 ml gastric fluid. Today he has increasing requirements for pain meds. HIDA scan was requested but not able to be done here. CT scan revealed only a small amount of fluid in the gallbladder fossa. TBili was 1.5 earlier today. Lactate 1.1. Hemoglobin 15.5. ALT 79. Other enzymes normal range. CRP, amylase and lipase are pending. - Discharge Data Discharge Date: 09/21/20 Discharge Disposition: DC/Tfer to Acute Hospital 02 Condition: Good - Referral to Home Health Primary Care Physician: Julio Cesar Escobar MD - Discharge Diagnosis/Problem(s) (1) Cholelithiasis and cholecystitis without obstruction SNOMED Code(s): 78084836 ICD Code: K80.10 - CALCULUS OF GALLBLADDER W CHRONIC CHOLECYST W/O OBSTRUCTION Status: Acute Priority: Medium Current Visit: Yes Qualifiers: Cholecystitis acuity: acute and chronic (2) Hypoxemia SNOMED Code(s): 965359131 ICD Code: R09.02 - HYPOXEMIA Status: Acute Priority: High Current Visit: Yes (3) Abdominal distention SNOMED Code(s): 50053127 ICD Code: R14.0 - ABDOMINAL DISTENSION (GASEOUS) Status: Acute Priority: High Current Visit: Yes - Patient Summary/Data Operative Procedure(s) Performed: Laparoscopic cholecystectomy Complications: Possible bile leak. Consults: Consultations 09/21/20 10:37 Consult to Physician [CONS] Urgent Labs Pending at D/C: Amylase, lipase, CRP, repeat LFT's. - Patient Instructions Diet: NPO Diet, Other: Low-fat diet Activity: No Lifting Over 25 Pounds (For 6 weeks) Driving: Do Not Drive Showering/Bathing: May Shower (For 48 hours) Wound/Incision Care: Keep Operative Site/Wound Site Clean and Dry Notify Provider of: Fever, Increased Pain, Nausea and/or Vomiting Other/Special Instructions: See Dr. Badillo in 7-10 days as scheduled. - Discharge Plan Prescriptions/Med Rec: Acetaminophen/HYDROcodone [[place] 325-5 MG] 1 tab PO Q6H PRN #15 tablet PRN Reason: Pain (Moderate 4-6) Home Medications: Home Meds amLODIPine Besylate [Amlodipine Besylate] 5 mg PO QAM 02/01/15 [History] Omeprazole 40 mg PO DAILY 11/04/15 [History] Losartan [Cozaar] 50 mg PO QAM 09/19/17 [History] Chlorthalidone 25 mg PO DAILY 09/16/20 [History] Fluticasone Propionate [Flonase Allergy Relief] 2 spray NASBOTH DAILY PRN 09/16/20 [History] Loperamide HCl [Imodium A-D] 2 mg PO ASDIRECTED PRN 09/16/20 [History] Meloxicam 15 mg PO DAILY 09/16/20 [History] Pravastatin [Pravachol] 40 mg PO DAILY 09/16/20 [History] Acetaminophen/HYDROcodone [[place] 325-5 MG] 1 tab PO Q6H PRN #15 tablet 09/20/20 [Rx] Oxygen Flow Rate (L/min): 9 Patient Handouts: Acetaminophen; Hydrocodone tablets or capsules, Laparoscopic Cholecystectomy, Ileus Referrals: Keven Badillo MD [Physician] - - Discharge Summary/Plan Comment DC Time >30 min.: Yes (Telephone arrangements to transfer patient.) Discharge Summary/Plan Comment: See comments above. Patient is being transferred to larger facility for HIDA scan not available today, possible ERCP and possible IR drainage. Accepted by Dr. Smith and Dr. Emery at [facility]. - General Info Date of Service: 09/21/20 Admission Dx/Problem (Free Text: Cholelithiasis w/ acute/chronic cholecystitis. Functional Status: Denies: Pain Controlled, Tolerating Diet, Ambulating - Review of Systems General: Reports: Fever HEENT: Reports: No Symptoms Pulmonary: Reports: Shortness of Breath Cardiovascular: Reports: Chest Pain Gastrointestinal: Reports: Abdominal Pain. Denies: Nausea, Vomiting Genitourinary: Denies: Dysuria, Frequency, Burning Musculoskeletal: Reports: No Symptoms Skin: Denies: Jaundice, Mottled, Pallor, Diaphoresis Neurological: Reports: No Symptoms Psychiatric: Reports: Anxiety - Patient Data Vitals - Most Recent: Last Vital Signs Temp 97.7 F 09/21/20 15:45 Pulse 105 H 09/21/20 15:45 Resp 22 H 09/21/20 15:45 BP 127/79 09/21/20 15:45 Pulse Ox 90 L 09/21/20 15:45 Weight - Most Recent: 251 lb I&O - Last 24 hours: Intake & Output 09/21/20 09/21/20 09/21/20 03:59 11:59 19:59 Intake Total 600 2116 Output Total 1750 700 Balance -1150 1416 Lab Results - Last 24 hrs: Laboratory Results - last 24 hr 09/21/20 09/21/20 09/21/20 Range/Units 04:49 04:49 04:49 WBC 15.89 H (4.0-11.0) K/uL RBC 4.90 (4.50-5.90) M/uL Hgb 15.5 (13.0-17.0) g/dL Hct 46.4 (38.0-50.0) % MCV 94.7 (80.0-98.0) fL MCH 31.6 (27.0-32.0) pg MCHC 33.4 (31.0-37.0) g/dL RDW Std Deviation 45.6 (28.0-62.0) fl RDW Coeff of [place] 13 (11.0-15.0) % Plt Count 164 (150-400) K/uL MPV 10.30 (7.40-12.00) fL Neut % (Auto) 90.0 H (48.0-80.0) % Lymph % (Auto) 4.9 L (16.0-40.0) % [place] % (Auto) 5.0 (0.0-15.0) % Eos % (Auto) 0.0 (0.0-7.0) % Baso % (Auto) 0.1 (0.0-1.5) % Neut # (Auto) 14.3 H (1.4-5.7) K/uL Lymph # (Auto) 0.8 (0.6-2.4) K/uL [place] # (Auto) 0.8 (0.0-0.8) K/uL Eos # (Auto) 0.0 (0.0-0.7) K/uL Baso # (Auto) 0.0 (0.0-0.1) K/uL Nucleated RBC % 0.0 /100WBC Nucleated RBCs # 0 K/uL Sodium 137 (136-148) mmol/L Potassium 3.2 L (3.5-5.1) mmol/L Chloride 100 (98-107) mmol/L Carbon Dioxide 26.1 (21.0-32.0) mmol/L BUN 34 H (7.0-18.0) mg/dL Creatinine 1.5 H (0.8-1.3) mg/dL Est Cr Clr Drug Dosing 45.90 mL/min Estimated GFR (MDRD) 47.0 ml/min Glucose 136 H (74-106) mg/dL Calcium 8.4 L (8.5-10.1) mg/dL Magnesium 1.6 L (1.8-2.4) mg/dL Total Bilirubin 1.5 H (0.2-1.0) mg/dL Direct Bilirubin 0.50 (0.0-0.5) mg/dL Indirect Bilirubin 1.00 AST 36 (15-37) IU/L ALT 79 H (14-63) IU/L Alkaline Phosphatase 47 (46-116) U/L Total Protein 7.5 (6.4-8.2) g/dL Albumin 3.8 (3.4-5.0) g/dL Globulin 3.7 (2.6-4.0) g/dL Albumin/Globulin Ratio 1.0 (0.9-1.6) Med Orders - Current: Current Medications Hydrocodone Bitart/Acetaminophen ([place] 325-5 Mg) 1 - 2 tab PO Q4H PRN PRN Reason: Pain (moderate 4-6) Last Admin: 09/20/20 11:23 Dose: 2 tab Documented by: Hydrocodone Bitart/Acetaminophen ([place] 325-5 Mg) 1 - 2 tab PO Q4H PRN PRN Reason: Pain (moderate 4-6) Last Admin: 09/20/20 22:17 Dose: 2 tab Documented by: Albuterol (Proventil Neb Soln) 2.5 mg NEB ONETIME PRN PRN Reason: Wheezing Atropine Sulfate (Atropine 0.1 Mg/Ml) 0.5 mg IVPUSH ASDIRECTED PRN PRN Reason: Hypo-perfusion Atropine Sulfate (Atropine 0.1 Mg/Ml) 1 mg IVPUSH ASDIRECTED PRN PRN Reason: Hypo-Perfusion Dextrose/Water (Dextrose 50% In Water) 50 ml IVPUSH ASDIRECTED PRN PRN Reason: Hypoglycemia Epinephrine HCl (Epinephrine 1:10,000) 1 mg IVPUSH ASDIRECTED PRN PRN Reason: ACLS Guidelines Fentanyl (Sublimaze) 50 mcg IVPUSH Q5M PRN PRN Reason: Pain Last Admin: 09/20/20 10:48 Dose: 50 mcg Documented by: Lactated Ringer's (Ringers, Lactated) 1,000 mls @ 125 mls/hr IV ASDIRECTED [facility] Last Admin: 09/20/20 06:48 Dose: 125 mls/hr Documented by: Lactated Ringer's (Ringers, Lactated) 1,000 mls @ 125 mls/hr IV ASDIRECTED [facility] Lactated Ringer's (Ringers, Lactated) 1,000 mls @ 125 mls/hr IV ASDIRECTED [facility] Last Infusion: 09/21/20 14:50 Dose: 0 mls/hr Documented by: Naloxone HCl (Narcan) 0.1 mg IVPUSH ASDIRECTED PRN PRN Reason: Respiratory Depression Ondansetron HCl (Zofran) 4 mg IVPUSH ONETIME PRN PRN Reason: Nausea/Vomiting Tramadol HCl (Ultram) 50 mg PO Q6HR [facility] Last Admin: 09/21/20 15:11 Dose: Not Given Documented by: Discontinued Medications Bupivacaine HCl (Marcaine 0.5%) Confirm Administered Dose 30 ml .ROUTE .STK-MED ONE Stop: 09/20/20 07:50 Cefazolin Sodium (Ancef) Confirm Administered Dose 1 gm .ROUTE .STK-MED ONE Stop: 09/20/20 07:50 Dexamethasone (Dexamethasone) Confirm Administered Dose 20 mg .ROUTE .STK-MED ONE Stop: 09/20/20 07:06 Ephedrine Sulfate (Ephedrine Sulfate) Confirm Administered Dose 50 mg .ROUTE .STK-MED ONE Stop: 09/20/20 08:28 Fentanyl (Sublimaze) Confirm Administered Dose 250 mcg .ROUTE .STK-MED ONE Stop: 09/20/20 07:05 Glycopyrrolate (Robinul) Confirm Administered Dose 0.4 mg .ROUTE .STK-MED ONE Stop: 09/20/20 07:06 Glycopyrrolate (Robinul) Confirm Administered Dose 0.2 mg .ROUTE .STK-MED ONE Stop: 09/20/20 08:44 Glycopyrrolate (Robinul) Confirm Administered Dose 0.2 mg .ROUTE .STK-MED ONE Stop: 09/20/20 08:48 Cefoxitin Sodium 2 gm/ Premix 50 mls @ 100 mls/hr IV ONETIME ONE Stop: 09/20/20 06:29 Last Admin: 09/20/20 16:01 Dose: Not Given Documented by: Cefazolin Sodium/Dextrose (Ancef 2 Gm/50 Ml) Confirm Administered Dose 50 mls @ as directed .ROUTE .ST-MED ONE Stop: 09/20/20 07:10 Acetaminophen (Ofirmev 1000 Mg/100 Ml) Confirm Administered Dose 100 mls @ as directed .ROUTE .ST-MED ONE Stop: 09/20/20 07:46 Sodium Chloride (Normal Saline) Confirm Administered Dose 20 mls @ as directed .ROUTE .ST-MED ONE Stop: 09/20/20 08:28 Ketorolac Tromethamine (Toradol) Confirm Administered Dose 30 mg .ROUTE .STK-MED ONE Stop: 09/20/20 08:36 Ketorolac Tromethamine (Toradol) 15 mg IVPUSH ONETIME ONE Stop: 09/20/20 11:46 Last Admin: 09/20/20 16:18 Dose: Not Given Documented by: Ketorolac Tromethamine (Toradol) Confirm Administered Dose 30 mg .ROUTE .STK-MED ONE Stop: 09/20/20 11:35 Last Admin: 09/20/20 16:02 Dose: Not Given Documented by: Ketorolac Tromethamine (Toradol) 15 mg IVPUSH ONETIME ONE Stop: 09/20/20 11:51 Last Admin: 09/20/20 11:40 Dose: 15 mg Documented by: Ketorolac Tromethamine (Toradol) 15 mg IVPUSH ONETIME ONE Stop: 09/20/20 22:46 Last Admin: 09/20/20 22:44 Dose: 15 mg Documented by: Lidocaine (Xylocaine-Mpf 2%) Confirm Administered Dose 5 ml .ROUTE .STK-MED ONE Stop: 09/20/20 07:06 Lidocaine (Lidocaine 2% 5 Ml Sdv) Confirm Administered Dose 5 ml .ROUTE .STK-MED ONE Stop: 09/21/20 03:01 Midazolam HCl (Versed 1 Mg/Ml) Confirm Administered Dose 2 mg .ROUTE .STK-MED ONE Stop: 09/20/20 07:05 Morphine Sulfate (Morphine) 0 mg IVPUSH Q30M PRN PRN Reason: Pain Last Admin: 09/20/20 20:03 Dose: 2 mg Documented by: Morphine Sulfate (Morphine) 0 mg IVPUSH Q1H PRN PRN Reason: Pain (severe 7-10) Last Admin: 09/20/20 18:12 Dose: 2 mg Documented by: Morphine Sulfate (Morphine 2 Mg/Ml Syringe) Confirm Administered Dose 2 mg .ROUTE .STK-MED ONE Stop: 09/21/20 03:19 Last Admin: 09/21/20 15:02 Dose: Not Given Documented by: Morphine Sulfate (Morphine 2 Mg/Ml Syringe) Confirm Administered Dose 2 mg .ROUTE .STK-MED ONE Stop: 09/21/20 04:52 Last Admin: 09/21/20 15:02 Dose: Not Given Documented by: Morphine Sulfate (Morphine 4 Mg/Ml Syringe) Confirm Administered Dose 4 mg .ROUTE .STK-MED ONE Stop: 09/21/20 05:37 Last Admin: 09/21/20 15:02 Dose: Not Given Documented by: Ondansetron HCl (Zofran) Confirm Administered Dose 4 mg .ROUTE .STK-MED ONE Stop: 09/20/20 07:06 Propofol (Diprivan 20 Ml) Confirm Administered Dose 200 mg .ROUTE .STK-MED ONE Stop: 09/20/20 07:05 Rocuronium [place] (Rocuronium [place]) Confirm Administered Dose 50 mg .ROUTE .STK-MED ONE Stop: 09/20/20 07:06 - Exam Quality Assessment: Reports: Supplemental Oxygen (9L), DVT Prophylaxis General: Reports: Alert, Oriented, Cooperative, Severe Distress HEENT: Reports: Pupils Equal, Pupils Reactive Neck: Reports: Supple Lungs: Reports: Clear to Auscultation, Normal Respiratory Effort Cardiovascular: Reports: Regular Rate, Regular Rhythm, Tachycardia GI/Abdominal Exam: Distended, Rebound, Tender, Abnormal Bowel Sounds (hypoactive3), Hernia (umbilical). No: Mass, Hepatomegaly Skin: Reports: Warm, Dry, Intact Wound/Incisions: Reports: Dressing Dry and Intact, No Drainage Neurological: Reports: No New Focal Deficit Psy/Mental Status: Reports: Anxious Discharge Operative/Procedures - Procedures Performed Operations: Laparoscopic cholecystectomy Operations/Procedure Comment: Laparoscopic cholecystectomy on 09/20. Possible bile leak.
[2020-09-21 17:41] LABS: BILIRUBIN INDIRECT 0.9
== END 2020-09-21 18:15 ==
LOC: MW.SDS 06:29 → MW.MS 14:55
PROVIDERS: ADMIT Surgery; ATTEND Surgery
DX: K80.12 Calculus of gallbladder with acute and chronic cholecystitis without obstruction (principal); R09.02 Hypoxemia; R14.0 Abdominal distension (gaseous); E78.5 Hyperlipidemia, unspecified; I10 Essential (primary) hypertension; K42.0 Umbilical hernia with obstruction, without gangrene; K90.49 Malabsorption due to intolerance, not elsewhere classified; N17.9 Acute kidney failure, unspecified; J98.11 Atelectasis; E66.9 Obesity, unspecified; Z68.39 Body mass index [BMI] 39.0-39.9, adult; Z91.030 Bee allergy status; Z86.010 Personal history of colon polyps; Z87.442 Personal history of urinary calculi; Z79.899 Other long term (current) drug therapy; Z98.890 Other specified postprocedural states
CPT/HCPCS: 36415; 47562; 71045; 71250; 74174; 80048; 80076; 82150; 83690; 83735; 85025; 86140; 88304; 93005; 94640; 96365; 96375; 96376; A9270; C9113; G0378; J0131; J0330; J1100; J1170; J1885; J2250; J2270; J2405; J2543; J2704; J3010; J3475; J3480; J3490; J7120; Q9967; 00790; J0690; J7620-GY

== ENCOUNTER 2021-11-27 09:32 | Emergency (ER) | payer MEDICARE, BC ==
[2021-11-27] MEDS ORDERED: Sodium Chloride 0.9% 2.5 ML Syringe FLUSH PRN (09:49)
[2021-11-27] MEDS ORDERED: Sodium Chloride 0.9% 10 ML Syringe FLUSH PRN (09:49)
[2021-11-27 11:00] LABS: BLOOD UREA NITROGEN,BUN 14 mg/dL (7.0-18.0); CARBON DIOXIDE,CO2 29.8 mmol/L (21.0-32.0); CHLORIDE,CL 105 mmol/L (98-107); GLUCOSE RANDOM 104 mg/dL (74-106); POTASSIUM,K 3.9 mmol/L (3.5-5.1); SODIUM,NA 141 mmol/L (136-148)
[2021-11-27 11:40] VITALS: BP 117/99; PULSE 87
== END 2021-11-27 11:41 | disposition home or self-care (01) ==
LOC: MW.ED 09:32
DX: M75.42 Impingement syndrome of left shoulder (principal); R60.0 Localized edema; K21.9 Gastro-esophageal reflux disease without esophagitis; I10 Essential (primary) hypertension; E66.9 Obesity, unspecified; Z68.39 Body mass index [BMI] 39.0-39.9, adult; Z79.899 Other long term (current) drug therapy; Z91.030 Bee allergy status
CPT/HCPCS: 36415; 71045; 80053; 83880; 84484; 85025; 85379; 93005; 99284; J3490

== ENCOUNTER 2023-12-24 18:38 | Emergency (ER) | payer BC, MEDICARE ==
[2023-12-24 19:33] VITALS: BP 145/76; PULSE 66
[2023-12-24 20:22] LABS: BASOPHILS ABSOLUTE AUTO 0.07 K/uL (0.00-0.20); BASOPHILS PERCENT AUTO 0.8 % (0.0-1.0); EOSINOPHILS ABSOLUTE AUTO 0.08 K/uL (0.00-0.45); EOSINOPHILS PERCENT AUTO 0.9 % (0.0-6.0); HEMATOCRIT 46.8 % (42.0-52.0); HEMOGLOBIN 15.6 g/dL (14.0-18.0); IMMATURE GRAN ABSOLUTE AUTO 0.02 K/uL (0.00-0.05); IMMATURE GRAN PERCENT AUTO 0.2 % (0.0-0.4); LYMPHOCYTES PERCENT AUTO 18.4 % (24.0-44.0); MEAN CORPUSCULAR HEMOGLOBIN 31.3 pg (28.0-32.0); MEAN CORPUSCULAR HGB CONC 33.3 g/dL (32.0-36.0); MEAN PLATELET VOLUME 9.9 fL (9.4-12.4); MONOCYTES PERCENT AUTO 8.6 % (0.0-8.0); NEUTROPHILS ABSOLUTE AUTO 6.59 K/uL (1.80-7.70); NEUTROPHILS PERCENT AUTO 71.1 % (41.0-71.0); PLATELET COUNT,PLT 127 K/uL (150-400); RED BLOOD CELL COUNT 4.98 M/uL (4.52-5.90); WHITE BLOOD CELL COUNT,WBC 9.26 K/uL (3.9-11.3)
[2023-12-24 20:38] LABS: INR 1.07 (0.86-1.11)
[2023-12-24 20:58] LABS: A/G RATIO 0.9 (0.9-1.6); ALBUMIN 3.6 g/dL (3.4-5.0); BILIRUBIN TOTAL 0.6 mg/dL (0.2-1.0); CALCIUM 8.9 mg/dL (8.5-10.1); CARBON DIOXIDE,CO2 27.7 mmol/L (21.0-32.0); CREATININE 1.1 mg/dL (0.8-1.3); EST CRCL DRUG DOSING (CG) 60.09 mL/min; PROTEIN TOTAL,TP 7.4 g/dL (6.4-8.2)
== END 2023-12-24 21:31 | disposition home or self-care (01) ==
LOC: MW.ED 18:38
DX: L30.9 Dermatitis, unspecified (principal); I10 Essential (primary) hypertension; Z91.030 Bee allergy status; Z79.899 Other long term (current) drug therapy
CPT/HCPCS: 36415; 80053; 85025; 85610; 99283

== ENCOUNTER 2024-03-05 09:28 | Day surgery (SDC) | payer MEDICARE ==
[2024-03-05] MEDS: Lactated Ringers 1,000 ML IV SCH (10:00)
[2024-03-05] MEDS ORDERED: propofoL 50 ML ONE (10:19)
[2024-03-05] MEDS ORDERED: Lidocaine 2% 5 ML SDV ONE (10:19)
[2024-03-05] MEDS ORDERED: Propofol 200 MG/20 ML SDV ONE (11:34)
[2024-03-05 14:09] VITALS: BP 118/74; PULSE 62
== END 2024-03-05 12:20 | disposition home or self-care (01) ==
LOC: MW.SDS 09:28
PROVIDERS: ATTEND Surgery
DX: D12.4 Benign neoplasm of descending colon (principal); K51.40 Inflammatory polyps of colon without complications; Z86.010 Personal history of colon polyps; I10 Essential (primary) hypertension; E78.00 Pure hypercholesterolemia, unspecified; K21.9 Gastro-esophageal reflux disease without esophagitis; E66.9 Obesity, unspecified; Z79.82 Long term (current) use of aspirin; Z79.899 Other long term (current) drug therapy
CPT/HCPCS: 45380; 45385; J2704; J7120; 00811; J3490

== ENCOUNTER 2025-01-28 06:33 | Inpatient (IN) | payer MEDICARE ==
[2025-01-28] MEDS ORDERED: Ropivacaine 49.25 ML, Ketorolac 30 MG, EPINEPHrine 0.5 MG, cloNIDine 80 MCG in Sodium C... INJECT SCH (07:00)
[2025-01-28] MEDS: Lactated Ringers 1,000 ML IV SCH (07:05)
[2025-01-28] MEDS ORDERED: propofoL 500 MG/50 ML 50 ML ONE ×2 (07:17→09:31)
[2025-01-28] MEDS ORDERED: dexmedeTOMIDine HCl 200 MCG/2 ML SDV ONE (07:17)
[2025-01-28] MEDS ORDERED: Ketamine HCL/NACL, ISO-OSM 50 MG/5 ML Syringe ONE (07:18)
[2025-01-28] MEDS ORDERED: fentaNYL 100 MCG/2 ML SDV ONE (07:18)
[2025-01-28] MEDS ORDERED: Ropivacaine 0.5% 5 MG/ML 30 ML SDV ONE (07:21)
[2025-01-28] MEDS ORDERED: Albuterol 0.083% 2.5 MG/3 ML Neb Soln NEB PRN (08:03)
[2025-01-28] MEDS ORDERED: Ondansetron 4 MG/2 ML SDV IVPUSH PRN ×2 (08:03→10:55)
[2025-01-28] MEDS ORDERED: fentaNYL 50 MCG/ML SDV IVPUSH PRN (08:03)
[2025-01-28] MEDS ORDERED: Naloxone 0.4 MG/ML SDV IVPUSH PRN (08:03)
[2025-01-28] MEDS ORDERED: ePHEDrine 50 MG/ML SDV ONE (08:40)
[2025-01-28] MEDS ORDERED: Ondansetron 4 MG/2 ML SDV ONE (10:34)
[2025-01-28] MEDS ORDERED: Sodium Chloride 0.9% 2.5 ML Syringe FLUSH PRN (10:55)
[2025-01-28] MEDS ORDERED: Sodium Chloride 0.9% 10 ML Syringe FLUSH PRN (10:55)
[2025-01-28 13:02] LABS: BASOPHILS ABSOLUTE AUTO 0.03 K/uL (0.00-0.20); BASOPHILS PERCENT AUTO 0.4 % (0.0-1.0); EOSINOPHILS ABSOLUTE AUTO 0.04 K/uL (0.00-0.45); EOSINOPHILS PERCENT AUTO 0.5 % (0.0-6.0); IMMATURE GRAN ABSOLUTE AUTO 0.02 K/uL (0.00-0.05); IMMATURE GRAN PERCENT AUTO 0.2 % (0.0-0.4); LYMPHOCYTES ABSOLUTE AUTO 1.38 K/uL (1.00-4.80); LYMPHOCYTES PERCENT AUTO 16.9 % (24.0-44.0); MEAN PLATELET VOLUME 10.8 fL (9.4-12.4); MONOCYTES ABSOLUTE AUTO 0.68 K/uL (0.00-0.80); MONOCYTES PERCENT AUTO 8.3 % (0.0-8.0); NEUTROPHILS ABSOLUTE AUTO 6.01 K/uL (1.80-7.70); NEUTROPHILS PERCENT AUTO 73.7 % (41.0-71.0); NRBC ABSOLUTE 0.00 K/uL (0.00-0.02); NRBC PERCENT 0.0 /100WBC (0.0-0.2); PLATELET COUNT,PLT 80 K/uL (150-400); RED BLOOD CELL COUNT 4.56 M/uL (4.52-5.90); WHITE BLOOD CELL COUNT,WBC 8.16 K/uL (3.9-11.3)
[2025-01-28 13:10] LABS: BLOOD UREA NITROGEN,BUN 19.0 mg/dL (7.0-18.0); CARBON DIOXIDE,CO2 29.0 mmol/L (21.0-32.0); CHLORIDE,CL 105.0 mmol/L (98-107); CREATININE 1.2 mg/dL (0.8-1.3); EST CRCL DRUG DOSING (CG) 54.32 mL/min; GLUCOSE RANDOM 120.0 mg/dL (74-106); POTASSIUM,K 5.2 mmol/L (3.5-5.1); SODIUM,NA 140.0 mmol/L (136-148)
[2025-01-28 13:12] LABS: ESTIMATED GFR 65.0 mL/min (>60)
[2025-01-28] MEDS: Ketorolac 30 MG/ML SDV IVPUSH SCH (13:17)
[2025-01-28] MEDS: ceFAZolin 2 GM in Water For Injection, Sterile 20 ML IVPUSH SCH (17:07)
[2025-01-28] MEDS: ceFAZolin 2 GM in Water For Injection, Sterile 20 ML IVPUSH ONE (19:47)
[2025-01-29 06:05] LABS: BASOPHILS ABSOLUTE AUTO 0.04 K/uL (0.00-0.20); BASOPHILS PERCENT AUTO 0.5 % (0.0-1.0); EOSINOPHILS ABSOLUTE AUTO 0.05 K/uL (0.00-0.45); EOSINOPHILS PERCENT AUTO 0.6 % (0.0-6.0); IMMATURE GRAN ABSOLUTE AUTO 0.02 K/uL (0.00-0.05); IMMATURE GRAN PERCENT AUTO 0.2 % (0.0-0.4); LYMPHOCYTES ABSOLUTE AUTO 1.16 K/uL (1.00-4.80); LYMPHOCYTES PERCENT AUTO 13.2 % (24.0-44.0); MEAN PLATELET VOLUME 10.1 fL (9.4-12.4); MONOCYTES ABSOLUTE AUTO 0.89 K/uL (0.00-0.80); MONOCYTES PERCENT AUTO 10.1 % (0.0-8.0); NEUTROPHILS ABSOLUTE AUTO 6.61 K/uL (1.80-7.70); NEUTROPHILS PERCENT AUTO 75.4 % (41.0-71.0); NRBC ABSOLUTE 0.00 K/uL (0.00-0.02); NRBC PERCENT 0.0 /100WBC (0.0-0.2); PLATELET COUNT,PLT 116 K/uL (150-400); RED BLOOD CELL COUNT 3.94 M/uL (4.52-5.90); WHITE BLOOD CELL COUNT,WBC 8.77 K/uL (3.9-11.3)
[2025-01-29 06:30] LABS: BLOOD UREA NITROGEN,BUN 22.0 mg/dL (7.0-18.0); CARBON DIOXIDE,CO2 28.7 mmol/L (21.0-32.0); CHLORIDE,CL 104.0 mmol/L (98-107); CREATININE 1.2 mg/dL (0.8-1.3); EST CRCL DRUG DOSING (CG) 54.32 mL/min; GLUCOSE RANDOM 112.0 mg/dL (74-106); POTASSIUM,K 4.2 mmol/L (3.5-5.1); SODIUM,NA 140.0 mmol/L (136-148)
[2025-01-29 06:31] LABS: ESTIMATED GFR 65.0 mL/min (>60)
[2025-01-29] MEDS: Hydrochlorothiazide/Losartan 12.5-50 mg Tab PO SCH (08:52)
[2025-01-29] MEDS: Magnesium Sulfate 2 GM/50 mL 2 GM in Premix Bag 1 BAG IV ONE (10:14)
[2025-01-29 13:31] VITALS: BP 133/72; PULSE 68
== END 2025-01-29 13:15 | disposition home or self-care (01) | DRG 470 ==
LOC: MW.SDS 06:33 → MW.MS 12:03
PROVIDERS: ADMIT Orthopaedic Surgery; ATTEND Orthopaedic Surgery
PROC: 3E03329 Introduction of Other Anti-infective into Peripheral Vein, Percutaneous Approach (ICD-10-PCS; 2025-01-28)
PROC: 0SRC0J9 Replacement of Right Knee Joint with Synthetic Substitute, Cemented, Open Approach (ICD-10-PCS; principal; 2025-01-28 08:00)
DX: M17.11 Unilateral primary osteoarthritis, right knee (principal); Z68.41 Body mass index [BMI] 40.0-44.9, adult; I10 Essential (primary) hypertension; H54.7 Unspecified visual loss; E78.00 Pure hypercholesterolemia, unspecified; K21.9 Gastro-esophageal reflux disease without esophagitis; K58.9 Irritable bowel syndrome, unspecified; E66.9 Obesity, unspecified; E11.40 Type 2 diabetes mellitus with diabetic neuropathy, unspecified; D69.6 Thrombocytopenia, unspecified; Z86.718 Personal history of other venous thrombosis and embolism; Z90.49 Acquired absence of other specified parts of digestive tract; Z91.030 Bee allergy status; Z79.899 Other long term (current) drug therapy; Z90.89 Acquired absence of other organs; Z86.0100 Personal history of colon polyps, unspecified; Z98.890 Other specified postprocedural states; Z98.1 Arthrodesis status
CPT/HCPCS: 01402; 27447; 36415; 64447; 73560-26-RT; 73560-RT; 80048; 83735; 85025; 86850; 86900; 86901; 97162-GP; 97530-GP; 99222; 99232; A9270-GY; C1776; J0173; J0690; J0735; J1308; J1885; J2003; J2405; J2704; J2795; J3010; J3475; J3490; J7120

== ENCOUNTER 2025-02-02 04:50 | Emergency (ER) | payer MEDICARE ==
[2025-02-02] MEDS ORDERED: Sodium Chloride 0.9% 2.5 ML Syringe FLUSH PRN (05:01)
[2025-02-02] MEDS ORDERED: Sodium Chloride 0.9% 10 ML Syringe FLUSH PRN (05:01)
[2025-02-02 05:42] LABS: BASOPHILS ABSOLUTE AUTO 0.04 K/uL (0.00-0.20); BASOPHILS PERCENT AUTO 0.5 % (0.0-1.0); EOSINOPHILS ABSOLUTE AUTO 0.10 K/uL (0.00-0.45); EOSINOPHILS PERCENT AUTO 1.1 % (0.0-6.0); IMMATURE GRAN ABSOLUTE AUTO 0.05 K/uL (0.00-0.05); IMMATURE GRAN PERCENT AUTO 0.6 % (0.0-0.4); LYMPHOCYTES ABSOLUTE AUTO 1.08 K/uL (1.00-4.80); LYMPHOCYTES PERCENT AUTO 12.2 % (24.0-44.0); MEAN PLATELET VOLUME 9.2 fL (9.4-12.4); MONOCYTES ABSOLUTE AUTO 1.00 K/uL (0.00-0.80); MONOCYTES PERCENT AUTO 11.3 % (0.0-8.0); NEUTROPHILS ABSOLUTE AUTO 6.60 K/uL (1.80-7.70); NEUTROPHILS PERCENT AUTO 74.3 % (41.0-71.0); NRBC ABSOLUTE 0.00 K/uL (0.00-0.02); NRBC PERCENT 0.0 /100WBC (0.0-0.2); PLATELET COUNT,PLT 168 K/uL (150-400); RED BLOOD CELL COUNT 3.52 M/uL (4.52-5.90); WHITE BLOOD CELL COUNT,WBC 8.87 K/uL (3.9-11.3)
[2025-02-02 06:09] LABS: BLOOD UREA NITROGEN,BUN 26.0 mg/dL (7.0-18.0); CARBON DIOXIDE,CO2 33.0 mmol/L (21.0-32.0); CHLORIDE,CL 101.0 mmol/L (98-107); CREATININE 1.2 mg/dL (0.8-1.3); EST CRCL DRUG DOSING (CG) 56.21 mL/min; GLUCOSE RANDOM 117.0 mg/dL (74-106); POTASSIUM,K 4.6 mmol/L (3.5-5.1); SODIUM,NA 138.0 mmol/L (136-148)
[2025-02-02 06:13] LABS: ESTIMATED GFR 65.0 mL/min (>60)
[2025-02-02 07:21] VITALS: BP 99/56; PULSE 65
== END 2025-02-02 07:27 | disposition home or self-care (01) ==
LOC: MW.ED 04:50
DX: G89.18 Other acute postprocedural pain (principal); M25.561 Pain in right knee; E78.00 Pure hypercholesterolemia, unspecified; I10 Essential (primary) hypertension; K21.9 Gastro-esophageal reflux disease without esophagitis; E13.9 Other specified diabetes mellitus without complications; Z91.030 Bee allergy status; Z79.01 Long term (current) use of anticoagulants; Z79.899 Other long term (current) drug therapy
CPT/HCPCS: 36415; 73560; 80048; 85025; 85652; 86140; 96374; 99283; J2270

== ENCOUNTER 2025-02-07 12:15 | Emergency (ER) | payer MEDICARE ==
[2025-02-07 13:28] VITALS: BP 130/68; PULSE 63
[2025-02-07 13:51] LABS: BASOPHILS ABSOLUTE AUTO 0.05 K/uL (0.00-0.20); BASOPHILS PERCENT AUTO 0.5 % (0.0-1.0); EOSINOPHILS ABSOLUTE AUTO 0.09 K/uL (0.00-0.45); EOSINOPHILS PERCENT AUTO 1.0 % (0.0-6.0); IMMATURE GRAN ABSOLUTE AUTO 0.10 K/uL (0.00-0.05); IMMATURE GRAN PERCENT AUTO 1.1 % (0.0-0.4); LYMPHOCYTES ABSOLUTE AUTO 1.44 K/uL (1.00-4.80); LYMPHOCYTES PERCENT AUTO 15.7 % (24.0-44.0); MEAN PLATELET VOLUME 8.7 fL (9.4-12.4); MONOCYTES ABSOLUTE AUTO 0.97 K/uL (0.00-0.80); MONOCYTES PERCENT AUTO 10.6 % (0.0-8.0); NEUTROPHILS ABSOLUTE AUTO 6.51 K/uL (1.80-7.70); NEUTROPHILS PERCENT AUTO 71.1 % (41.0-71.0); NRBC ABSOLUTE 0.02 K/uL (0.00-0.02); NRBC PERCENT 0.2 /100WBC (0.0-0.2); PLATELET COUNT,PLT 198 K/uL (150-400); RED BLOOD CELL COUNT 3.58 M/uL (4.52-5.90); WHITE BLOOD CELL COUNT,WBC 9.16 K/uL (3.9-11.3)
[2025-02-07 14:22] LABS: A/G RATIO 0.9 (0.9-1.6); ALANINE AMINOTRANSFERASE,ALT 49.0 IU/L (14-63); ASPARTATE AMNIOTRANSFERASE,AST 26.0 IU/L (15-37); BILIRUBIN TOTAL 1.1 mg/dL (0.2-1.0); BLOOD UREA NITROGEN,BUN 25.0 mg/dL (7.0-18.0); CARBON DIOXIDE,CO2 31.2 mmol/L (21.0-32.0); CHLORIDE,CL 102.0 mmol/L (98-107); CREATININE 1.2 mg/dL (0.8-1.3); EST CRCL DRUG DOSING (CG) 56.21 mL/min; GLUCOSE RANDOM 108.0 mg/dL (74-106); POTASSIUM,K 4.4 mmol/L (3.5-5.1); PROTEIN TOTAL,TP 7.4 g/dL (6.4-8.2); SODIUM,NA 139.0 mmol/L (136-148)
[2025-02-07 14:24] LABS: ESTIMATED GFR 65.0 mL/min (>60)
== END 2025-02-07 15:44 | disposition home or self-care (01) ==
LOC: MW.ED 12:15
DX: M79.89 Other specified soft tissue disorders (principal); I10 Essential (primary) hypertension; K21.9 Gastro-esophageal reflux disease without esophagitis; Z91.030 Bee allergy status; Z79.899 Other long term (current) drug therapy; Z90.49 Acquired absence of other specified parts of digestive tract
CPT/HCPCS: 36415; 80053; 85025; 93971-26-RT; 93971-RT; 99283; 99284